=== PATIENT | male | born 1985 | race Caucasian/White ===

== ENCOUNTER 2020-06-29 13:20 | Outpatient (REF) | payer MEDICAID, SELFPAY | END 2020-06-29 13:21 | disposition home or self-care (01) | LOC: HO.LAB 13:20 | PROVIDERS: PCP Nurse Practitioner Family; Visit Provider Internal Medicine | DX: Z20.822 Contact with and (suspected) exposure to COVID-19 (principal) | CPT/HCPCS: 36415; C9803; U0003 ==

== ENCOUNTER 2021-06-12 13:34 | Emergency (ER) | payer MEDICAID, SELFPAY ==
[2021-06-12 13:49] VITALS: BP 166/113; PULSE 97; RESP 18; TEMP 36.7; O2SAT 99; BMI 33.4
== END 2021-06-12 15:55 | disposition left against medical advice (07) ==
LOC: HO.ED 15:52
PROVIDERS: Emergency Provider Emergency Medicine; PCP Internal Medicine
DX: Z02.2 Encounter for examination for admission to residential institution (principal); F14.10 Cocaine abuse, uncomplicated; F10.10 Alcohol abuse, uncomplicated
CPT/HCPCS: 99281

== ENCOUNTER 2022-04-10 09:06 | Observation (INO) | payer MEDICAID, SELFPAY ==
--- NOTE | ~2022-04-10 | FL_ITS ---
EXAMINATION: XR FLUOROSCOPY WITH IMAGES CLINICAL INFORMATION: ERCP. COMPARISON: None. TECHNIQUE: Fluoroscopy performed by Dr. Leonardo Fisher. Fluoroscopy time: 193.1 seconds. Cumulative Dose: 102.79 mGy. Images: 9. FINDINGS: Images show an endoscope with wires entering the common bile duct. Contrast is injected. No convincing filling defects are seen. A balloon is seen in the common bile duct. FL/FL guidance in OR IMPRESSION: Fluoroscopy and spot films were provided during ERCP. Please see Dr. Leonardo Fisher's operative note for full details.
--- NOTE | ~2022-04-10 | CT_ITS ---
EXAMINATION: CT ABDOMEN AND PELVIS WITHOUT CONTRAST CLINICAL INFORMATION: Left flank pain. COMPARISON: None TECHNIQUE: Multidetector volumetric imaging was performed from the superior aspect of the liver through the pubic symphysis. Sagittal and coronal reformatted images were obtained on the technologist's workstation. This CT examination was performed using dose optimization techniques as appropriate, variously including the following: *Automated exposure control *Adjustment of mA and/or kV according to patient size (this includes techniques or standardized protocols for targeted exams where dose is matched to indication/reason for exam; i.e. extremities or head) *Use of iterative reconstruction technique DLP: 638 mGy-cm FINDINGS: LUNG BASES: The lung bases appear clear, with no evidence of inflammation or nodules. LIVER, GALLBLADDER, AND BILIARY TREE: Measures approximately 21 cm in sagittal dimension. No focal hepatic lesion or intrahepatic biliary ductal dilatation is appreciated. Suspect gallbladder sludge and/or stones, suboptimally evaluated by CT. Mildly distended gallbladder, measuring 4.9 cm in diameter. No obvious evidence of gallbladder wall thickening or pericholecystic inflammatory change. Common bile duct measures approximately 1.4 cm in diameter. No stone or mass directly visualized in the distal common bile duct. PANCREAS: Unremarkable SPLEEN: Measures approximately 14 cm in sagittal dimension. ADRENAL GLANDS: Unremarkable KIDNEYS AND URETERS: The kidneys appear unremarkable in size, shape, and attenuation. No hydronephrosis, hydroureter, or calculi seen. BLADDER: Unremarkable GASTROINTESTINAL TRACT: The small and large bowel appear unremarkable. No diverticulosis. Normal-appearing distal ileum. No evidence of appendicitis. ABDOMINAL WALL: No significant hernia is appreciated. LYMPH NODES: No evidence of adenopathy by size criteria. VASCULAR: Unremarkable PELVIC VISCERA: Unremarkable OSSEOUS STRUCTURES: Unremarkable CT/CT abdomen pelvis wo IV con IMPRESSION: No evidence of urinary tract stone or hydronephrosis. Mild hepatosplenomegaly. Suspect gallbladder sludge and/or stones, suboptimally evaluated by CT. Mildly distended gallbladder, measuring 4.9 cm in diameter. No obvious evidence of gallbladder wall thickening or pericholecystic inflammatory change. Common bile duct measures approximately 1.4 cm in diameter. No stone or mass directly visualized in the distal common bile duct.
--- NOTE | ~2022-04-10 | MR_ITS ---
EXAMINATION: MR ABDOMEN WITHOUT CONTRAST CLINICAL INFORMATION: Dilated common bile duct. COMPARISON: CT scan of the abdomen and pelvis and abdominal ultrasound both dated 04/10/2022. TECHNIQUE: MR abdomen is performed without gadolinium contrast. MRCP was performed with 3-D reformatted images performed on a separate workstation. FINDINGS: LUNG BASES: The visualized lung bases are unremarkable. LIVER: Unremarkable. BILIARY: Multiple gallstones are seen. One of the largest measures up to 2.0 cm (image 11, series 3). Minimal gallbladder mural thickening is seen with surrounding T2 hyperintensity. The common bile duct measures up to 1.3 cm. Also several small filling defects are seen inferiorly measuring up to 0.5 cm (image 9, series 6). PANCREAS: No pancreatic ductal dilatation. No other significant abnormality. SPLEEN: Unremarkable. ADRENAL GLANDS: Unremarkable. KIDNEYS AND URETERS: The kidneys are normal in size and shape. No hydronephrosis. No perinephric stranding. GASTROINTESTINAL TRACT: No bowel obstruction. No ascites or fluid collection. ABDOMINAL WALL: No significant hernia is appreciated. LYMPH NODES: No lymphadenopathy. VASCULAR: Unremarkable. OSSEOUS STRUCTURES: Marrow signal normal. MR/MR MRCP IMPRESSION: 1. Cholelithiasis. Developing acute cholecystitis compared to the previous ultrasound cannot be excluded. Continued short-term monitoring with right upper quadrant ultrasound is recommended as indicated. 2. Dilated common bile duct with small filling defects distally suggestive of choledocholithiasis.
--- NOTE | ~2022-04-10 | US_ITS ---
EXAMINATION: US ABDOMEN LIMITED CLINICAL INFORMATION: Abdominal pain. COMPARISON: None TECHNIQUE: Real-time imaging of the right upper quadrant abdominal viscera. FINDINGS: The pancreas is suboptimally seen. There is no free fluid in the area. Liver demonstrates mild intrahepatic ductal dilatation. No lesion is seen. Echogenicity is increased most consistent with an element of fatty change. The gallbladder demonstrates gallstones multiple. There is some focal gallbladder wall thickening demonstrated by the social service worker at 8 mm but no convincing evidence for fluid. Patient is tender, positive Fonseca sign in the region of the gallbladder. The common duct measures 1.2 cm and is dilated. The right kidney is 10.7 cm. No hydronephrosis or stone. US/US abdomen limited IMPRESSION: Cholelithiasis here and the gallbladder wall does appear focally thickened in some areas but no convincing evidence for gall bladder wall edema at this time. There is a positive Fonseca sign. There is intrahepatic ductal dilatation and the common duct is also dilated at 1.2 cm
[2022-04-10 09:16] VITALS: BP 146/95; BP 151/86; PULSE 60; PULSE 66; RESP 22; TEMP 36.6; O2SAT 100; BMI 31.1
--- NOTE | 2022-04-10 09:23 | ED.ABDPAIN ---
HPI - Abdominal Pain General Chief Complaint: Abdominal Pain Stated Complaint: LLQ PAIN X'S 3 HOURS Time Seen by Provider: 04/10/22 09:21 Source: patient Mode of arrival: EMS History of Present Illness HPI narrative: This is a 36 years old with history of substance use disorder, currently on the [facility]. Presented to emergency room complaining of abdominal pain in the left lower quadrant MD elicited complaint: abdominal pain Pertinent past history: other (substance abuse) Onset (ago): hour(s) (4) Pain Consistency: constant Location: LUQ and LLQ Related Data Allergies Allergy/AdvReac Type Severity Reaction Status Date / Time bupropion [From WELLBUTRIN] Allergy Unknown HIVES Unverified 02/21/20 09:37 Review of Systems Constitutional: Reports no additional constitutional complaints Cardiovascular: Reports no additional cardiovascular complaints Respiratory: Reports no additional respiratory complaints Gastrointestinal: Reports abdominal pain PMFSH Past Medical History Medical History Cocaine abuse ETOH abuse Social History Social History Advance Directives: No Advance Directives Information Provided: No Physical Exam ED Vital Signs: Vital Signs - 24 hr 04/10/22 09:16 04/10/22 11:16 Temperature 97.8 F 97.8 F Pulse Rate 66 63 Respiratory Rate 22 H 18 Blood Pressure 146/95 H 148/88 H Pulse Oximetry 100 98 Oxygen Delivery Method Room Air Room Air BMI result Body Mass Index 31.1 Const General: cooperative Nutritional Appearance: average body habitus HENMT Head: Yes normal to inspection Ears: hearing grossly normal bilaterally General nose exam: Normal external nose present Face and sinus: Yes normal facial exam Mouth: Normal oral and palatal mucosa present Neck Neck: Yes normal visual inspection and Yes full ROM Chest Chest palpation & inspection: normal inspection of the chest Resp Effort & Inspection: normal respiratory effort Auscultation: clear to auscultation bilaterally Cardio Rate: regular rate Rhythm: regular rhythm GI Other: tenderness left flank Palpation (GI): Soft to palpation and Tenderness to palpation present (GI) (left lower qyadrant) Percussion: Yes normal to percussion Skin General skin exam: no rashes or lesions noted and elasticity normal Procedures EJ/Peripheral Line Arm L: Time Out Performed: Yes Skin Cleansed in Sterile Fashion: Yes Size (gauge): 18 IV Secured and Dressing Applied: Yes Patient Tolerated Procedure: well Additional Comments: I WAS ASKED BY RN AND TO PLACE AN IV BECAUSE OF POOR IV ACCESS, AND THE ULTRASOUND-GUIDED OUT OF PLANE APPROACH CANNULATED THE LEFT BASILIC VEIN WITH THE 18 GAUGE LONG CATHETER WITH GOOD FLASH A GOOD BLOOD RETURN Course Reevaluation(s) Reevaluation #1: I DISCUSSED THE CASE WITH THE SURGEON ON-CALL dR MAYNARD,SHE WILL SEE PT NOW MDM - Abdominal Pain Lab Data Result diagrams: 04/10/22 11:36 04/10/22 11:36 Labs: Lab Results 04/10/22 04/10/22 Range/Units 11:36 11:36 WBC 11.2 H (4.8-10.8) X10*3/uL RBC 4.95 (4.60-5.80) X10*6/uL Hgb 12.2 L (14.0-18.0) g/dl Hct 39.0 L (42.0-52.0) % MCV 78.8 L (80.0-98.0) fL MCH 24.6 L (27.0-33.0) pg MCHC 31.3 (31.0-36.0) g/dl RDW 13.6 (11.0-16.0) % Plt Count 279 (160-400) X10*3/uL MPV 10.6 (9.4-12.4) fL Immature Gran % (Auto) 0.4 (0.0-0.4) % Neut % (Auto) 88.6 H (45-73) % Lymph % (Auto) 8.4 L (20-40) % [place] % (Auto) 2.1 (2-11) % Eos % (Auto) 0.2 (0-4) % Baso % (Auto) 0.3 (0-2) % Lymph # (Auto) 0.9 L (1.2-4.9) X10*3/uL [place] # (Auto) 0.2 (0.1-1.2) X10*3/uL Eos # (Auto) 0.0 (0.0-0.4) X10*3/uL Baso # (Auto) 0.0 (0.0-0.2) X10*3/uL Abs Immat Gran (auto) 0.04 H (0.00-0.03) X10*3/uL Absolute Neuts (auto) 10.0 H (2.0-8.3) x10*3/uL Absolute Nucleated RBC 0.000 (0.0-0.012) X10*3/uL Nucleated RBC % (auto) 0.0 (0.0-0.2) /100WBC Sodium 142 (135-145) mmol/L Potassium 4.1 (3.3-5.1) mmol/L Chloride 103 (96-108) mmol/L Carbon Dioxide 28 (22-29) mmol/L Anion Gap 15 (12-20) BUN 18 H (9-16) mg/dL Creatinine 0.86 (0.5-1.4) mg/dL Estim Creat Clear Calc 131.4 Estimated GFR > 60 Random Glucose 115 (60-115) mg/dL Calcium 9.9 (8.4-10.2) mg/dL Total Bilirubin 0.5 (0.0-1.0) mg/dL AST 28 (5-37) U/L ALT 20 (0-40) U/L Alkaline Phosphatase 104 (39-117) U/L Total Protein 8.1 H (6.5-8.0) g/dL Albumin 4.7 (3.5-5.0) g/dL Lipase 19 (8-78) U/L Imaging Data CT scan - abdomen: Radiologist's impression: VASCULAR: Unremarkable PELVIC VISCERA: Unremarkable OSSEOUS STRUCTURES: Unremarkable? CT/CT abdomen pelvis wo IV con IMPRESSION: ? No evidence of urinary tract stone or hydronephrosis. ? Mild hepatosplenomegaly. ? Suspect gallbladder sludge and/or stones, suboptimally evaluated by CT. Mildly distended gallbladder, measuring 4.9 cm in diameter. No obvious evidence of gallbladder wall thickening or pericholecystic inflammatory change. Common bile duct measures approximately 1.4 cm in diameter. No stone or mass directly visualized in the distal common bile duct. Dictated By: David Eldridge Signed By: <Electronically signed by Brie Eldridge in [place]> 04/10/22 1121 US ABDO: Radiologist's impression: ?the region of the gallbladder. The common duct measures 1.2 cm and is dilated. The right kidney is 10.7 cm. No hydronephrosis or stone. US/US abdomen limited IMPRESSION: Cholelithiasis here and the gallbladder wall does appear focally thickened in some areas but no convincing evidence for gall bladder wall edema at this time. ? There is a positive Fonseca sign. ? There is intrahepatic ductal dilatation and the common duct is also dilated at 1.2 cm Dictated By: Rickey Rich? Discharge Plan Discharge Clinical Impression: Abdominal pain, Gall bladder stones Patient Disposition: Admitted As Inpatient
[2022-04-10] MEDS: Midazolam HCl/PF 2 MG/2 ML VIAL IM (09:28)
[2022-04-10 11:16] VITALS: BP 148/88; PULSE 63; RESP 18; TEMP 36.6; O2SAT 98
[2022-04-10] MEDS: Ketorolac Tromethamine 30 MG/ML VIAL IVPUSH ×2 (11:39→19:58)
[2022-04-10] MEDS: 0.9 % Sodium Chloride 1,000 ML 999 ML IVCONT (11:40)
[2022-04-10 11:44] LABS: MANUAL DIFF FLAG NO
[2022-04-10 11:45] LABS: Basophils Percent Auto 0.3 % (0-2); Eosinophils Percent Auto 0.2 % (0-4); Hemoglobin 12.2 g/dl (14.0-18.0); Imm Gran Abs Auto 0.04 X10*3/uL (0.00-0.03); Imm Gran Pct Auto 0.4 % (0.0-0.4); Lymphocytes Absolute Auto 0.9 X10*3/uL (1.2-4.9); Lymphocytes Percent Auto 8.4 % (20-40); Mean Corpuscular HGB Conc 31.3 g/dl (31.0-36.0); Mean Corpuscular Hemoglobin 24.6 pg (27.0-33.0); Mean Corpuscular Volume 78.8 fL (80.0-98.0); Mean Platelet Volume 10.6 fL (9.4-12.4); Monocytes Absolute Auto 0.2 X10*3/uL (0.1-1.2); Monocytes Percent Auto 2.1 % (2-11); Neutrophils Percent Auto 88.6 % (45-73); Platelet Count 279 X10*3/uL (160-400); Red Blood Count 4.95 X10*6/uL (4.60-5.80); Red Cell Distribution Width 13.6 % (11.0-16.0); White Blood Count 11.2 X10*3/uL (4.8-10.8)
[2022-04-10 12:04] LABS: Alanine Aminotransferase 20 U/L (0-40); Albumin Level 4.7 g/dL (3.5-5.0); Alkaline Phosphatase 104 U/L (39-117); Anion Gap 15 (12-20); Aspartate Amino Transferase 28 U/L (5-37); Bilirubin Total 0.5 mg/dL (0.0-1.0); Blood Urea Nitrogen 18 mg/dL (9-16); Calcium 9.9 mg/dL (8.4-10.2); Carbon Dioxide 28 mmol/L (22-29); Chloride 103 mmol/L (96-108); Creatinine Clr Calc Pharmacy 131.4; Estimated Glomerular Filt Rate > 60; Glucose Random 115 mg/dL (60-115); Lipase 19 U/L (8-78); Potassium 4.1 mmol/L (3.3-5.1); Sodium 142 mmol/L (135-145); Total Protein 8.1 g/dL (6.5-8.0)
--- NOTE | 2022-04-10 15:58 | PC.NURSE ---
Spoke to [facility] clinical jewelry department supervisor. would like to know what plan for pt is. [phone]
[2022-04-10] MEDS: Piperacillin Sodium/Tazobactam 3.375 GM in 0.9 % Sodium Chloride 50 ML IV ×2 (16:31→23:11)
--- NOTE | 2022-04-10 17:30 | PHA.MEDREC ---
Pharmacy Consult ? Medication Reconciliation Pharmacy has completed the medication reconciliation.
[2022-04-10 18:34] LABS: COVID-19 Test Negative (Negative); IDNOW Serial# 16C4AD1C
--- NOTE | 2022-04-10 18:59 | PC.NURSE ---
pt didn't receive dinner tray in ED, kitchen notified, pt is clear liquid diet, NPO at midnight.
[2022-04-10 19:02] VITALS: BP 127/68; PULSE 72; RESP 18; TEMP 36.6; O2SAT 100
--- NOTE | 2022-04-10 19:40 | P.HPGS_ITS ---
History of Present Illness History of Present Illness Date of Service: 04/10/22 Chief complaint: Abdominal Pain Narrative: Barrington Knight is a 36 year old male living in a pen[facility]iary [facility] for cocaine and etoh abuse presents in ER with a few hr history of severe abdominal pain. no nausea or vomiting no diarrhea no sick contacts. he says he was eating a lot of candy the night before and today - lots of junk food. sometimes gets abdo pain especially when he eats junk food. here wbc mildly up and ct showing distended GB and sludge and dilated duct to 1.4 cm. pt with normal lfts. denies knowing he had issues with gb. no surgeries before. Review of Systems Review of Systems: Yes all other systems are reviewed and are negative PMFSH Past Medical History Medical History Cocaine abuse ETOH abuse Social History Social History Advance Directives: No Advance Directives Information Provided: No Meds Allergies Allergy/AdvReac Type Severity Reaction Status Date / Time bupropion [From WELLBUTRIN] Allergy Unknown HIVES Unverified 02/21/20 09:37 Active Medications: Current Medications Buprenorphine/Naloxone (Buprenorphine/Naloxone 8/2 Mg Film) 1 film SUBLINGUAL DAILY [facility] Last Admin: 04/10/22 19:06 Dose: Not Given Gabapentin (Gabapentin 100 Mg Capsule) 200 mg PO TID [facility] Piperacillin Sod/Tazobactam (Sod 3.375 gm/ Sodium Chloride) 50 mls @ 100 mls/hr IV Q6H [facility] Last Infusion: 04/10/22 17:03 Dose: Infused Ketorolac Tromethamine (Ketorolac Tromethamine 30 Mg/Ml Vial) 30 mg IVPUSH Q6H PRN PRN Reason: Pain, Mild (Pain Scale 1-3) Stop: 04/15/22 15:41 Ondansetron HCl (Ondansetron Hcl 4 Mg/2 Ml Vial) 4 mg IVPUSH Q8H PRN PRN Reason: Nausea and Vomiting Pantoprazole Sodium (Pantoprazole Sodium 40 Mg/10 Ml Vial) 40 mg IVPUSH DAILY@0630 [facility] Sodium Chloride (0.9 % Sodium Chloride Flush 3 Ml Syringe) 3 ml IVFLUSH QSHIFT [facility] Last Admin: 04/10/22 15:47 Dose: Not Given Trazodone HCl (Trazodone Hcl 25 Mg Halftab) 12.5 mg PO Q4H PRN PRN Reason: Anxiety Home Medications Medication Instructions Recorded Confirmed Last Taken Type buprenorphine 8 mg-naloxone 2 mg 1 strip sublingual DAILY 04/10/22 04/10/22 04/10/22 History sublingual film (Suboxone) calcium carbonate 200 mg calcium 2 tab PO QID PRN Acid Reflux 04/10/22 04/10/22 Unknown History (500 mg) chewable tablet (Antacid (calcium carbonate)) gabapentin 100 mg capsule 1 cap PO Q4H PRN anxiety 04/10/22 04/10/22 Unknown History gabapentin 800 mg tablet 1 tab PO TID 04/10/22 04/10/22 04/09/22 History melatonin 3 mg tablet 3 tab PO BEDTIME PRN Insomnia 04/10/22 04/10/22 Unknown History nicotine (polacrilex) 2 mg buccal 1 tete PO Q2H PRN Smoking Cessation 04/10/22 04/10/22 Unknown History lozenge omeprazole 20 mg capsule,delayed 1 cap PO DAILY@0630 04/10/22 04/10/22 04/09/22 History release trazodone 50 mg tablet 0.25 tab PO Q4H PRN anxiety 04/10/22 04/10/22 Unknown History Physical Exam Vital Signs: Vital Signs: Last Vital Signs Temp 97.9 F 04/10/22 19:02 Pulse 72 04/10/22 19:02 Resp 18 04/10/22 19:02 BP 127/68 04/10/22 19:02 Pulse Ox 100 04/10/22 19:02 O2 Del Method 04/10/22 19:02 BMI result Body Mass Index 31.1 Const: General: cooperative, healthy appearing, comfortable and no acute distress Orientation/consciousness: patient oriented x3 Resp: Effort & Inspection: normal respiratory effort Auscultation: clear to auscultation bilaterally Cardio: Rate: regular rate Rhythm: regular rhythm GI: Other: soft tender mid abdomen with some guarding but distractable no peritonitis no masses Auscultation: normal bowel sounds Skin: Other: nonicteric Neuro: General: patient oriented x3 Psych: Appearance: grossly normal Mental Status: mental status grossly normal Affect: Irritable affect present Results Results Labs: Short CBC 04/10/22 Range/Units 11:36 WBC 11.2 H (4.8-10.8) X10*3/uL Hgb 12.2 L (14.0-18.0) g/dl Hct 39.0 L (42.0-52.0) % Plt Count 279 (160-400) X10*3/uL BMP 04/10/22 11:36 Sodium 142 Potassium 4.1 Chloride 103 Carbon Dioxide 28 BUN 18 H Creatinine 0.86 Calcium 9.9 Liver Function 04/10/22 Range/Units 11:36 Total Bilirubin 0.5 (0.0-1.0) mg/dL AST 28 (5-37) U/L ALT 20 (0-40) U/L Alkaline Phosphatase 104 (39-117) U/L Albumin 4.7 (3.5-5.0) g/dL Abdomen CT scan report/results: report reviewed and image reviewed CT scan - pelvis: report reviewed and image reviewed Assessment and Plan (1) Gall bladder stones: Status: Acute Plan 36 year old male presented with severe abdo pain acutely - hx of drug abuse, on suboxone but in a penitentiary house so hasnt used since february. here mild wbc elevated but lfts normal but cbd quite large on images and gb with some stones. ? passed a stone but interestingly all lfts normal plan - admit liquids then npo after midnight mrcp tomorrow check labs he understands and agrees with the plan Quality Stroke Does the patient have a stroke diagnosis?: No VTE Prior VTE?: No VTE Risk Level:: Surgical - low VTE Device Contraindication: N/A - Device Ordered VTE Drug Contraindication: Treatment Not Indicated Procedures Date of Service Date of Service: 04/10/22
--- NOTE | 2022-04-10 20:01 | PC.NURSE ---
pt reports that he took suboxone this am prior to arrival in ED, held 1700 dose at pt request, called pharmacy for ketorolac, medicated per provider order when medication arrived to ED overflow. pt a&ox3, vss, reporting 7/10 abd pain.
[2022-04-11] VITALS (7 sets, daily range): BP systolic 95–138; BP diastolic 54–69; PULSE 60–103; RESP 17–20; TEMP 36.4–37.2; O2SAT 94–97
[2022-04-11] MEDS: Ketorolac Tromethamine 30 MG/ML VIAL IVPUSH ×4 (02:37→22:12)
--- NOTE | 2022-04-11 02:41 | PC.NURSE ---
pt a&ox3, has been sleeping, RR even and unlabored, woken up per pt request for next dose of pain medication, pt reporting 9/10 abd pain. medicated per provider order.
[2022-04-11] MEDS: Piperacillin Sodium/Tazobactam 3.375 GM in 0.9 % Sodium Chloride 50 ML IV ×4 (04:08→22:11)
[2022-04-11 04:11] LABS: MANUAL DIFF FLAG NO
[2022-04-11 04:33] LABS: Basophils Absolute Auto 0.1 X10*3/uL (0.0-0.2); Basophils Percent Auto 0.4 % (0-2); Eosinophils Absolute Auto 0.1 X10*3/uL (0.0-0.4); Eosinophils Percent Auto 0.8 % (0-4); Hematocrit 32.7 % (42.0-52.0); Hemoglobin 10.6 g/dl (14.0-18.0); Imm Gran Abs Auto 0.04 X10*3/uL (0.00-0.03); Imm Gran Pct Auto 0.3 % (0.0-0.4); Lymphocytes Absolute Auto 1.4 X10*3/uL (1.2-4.9); Lymphocytes Percent Auto 11.9 % (20-40); Mean Corpuscular HGB Conc 32.4 g/dl (31.0-36.0); Mean Corpuscular Hemoglobin 25.1 pg (27.0-33.0); Mean Corpuscular Volume 77.5 fL (80.0-98.0); Mean Platelet Volume 11.1 fL (9.4-12.4); Monocytes Absolute Auto 0.8 X10*3/uL (0.1-1.2); Monocytes Percent Auto 6.5 % (2-11); Neutrophils Absolute Auto 9.7 x10*3/uL (2.0-8.3); Neutrophils Percent Auto 80.1 % (45-73); Platelet Count 237 X10*3/uL (160-400); Red Blood Count 4.22 X10*6/uL (4.60-5.80); White Blood Count 12.1 X10*3/uL (4.8-10.8)
[2022-04-11 04:34] LABS: Lipase 13 U/L (8-78)
[2022-04-11] MEDS: Pantoprazole Sodium 40 MG/10 ML VIAL IVPUSH (05:47)
--- NOTE | 2022-04-11 07:43 | PC.NURSE ---
rn to rn report given to shavon, pt aware of plan of care to room 353. pt has an heplock # 20 to l upper arm.
[2022-04-11] MEDS: Buprenorphine/Naloxone 8/2 mg FILM 1 FILM SUBLINGUAL (08:10)
[2022-04-11] MEDS: Gabapentin 100 MG CAPSULE 200 MG PO ×3 (08:10→20:34)
[2022-04-11] MEDS: 0.9 % Sodium Chloride Flush 3 ML SYRINGE IVFLUSH ×3 (08:12→20:35)
--- NOTE | 2022-04-11 08:51 | P.PNGS_ITS ---
Subjective Subjective Date of Service: 04/11/22 <Roseann Dickerson PA-C - Last Filed: 04/11/22 09:00> 04/11/22 <Janusz Gay MD - Last Filed: 04/11/22 09:54> Interval history: Still having a little pain. Hungry and wants to eat. Was recently treated for MRSA bacteremia at [facility] with 6 weeks IV vanco, source was the lower leg per patient. <Roseann Dickerson PA-C - Last Filed: 04/11/22 09:00> Physical Exam Vital Signs: Vital Signs: Last Vital Signs Temp 97.5 F 04/11/22 08:19 Pulse 85 04/11/22 08:19 Resp 18 04/11/22 08:19 BP 138/69 04/11/22 08:19 Pulse Ox 97 04/11/22 08:19 O2 Del Method 04/11/22 08:19 BMI result Body Mass Index 31.1 <Roseann Dickerson PA-C - Last Filed: 04/11/22 09:00> Const: General: comfortable, no acute distress, alert and anxious <Roseann Dickerson PA-C - Last Filed: 04/11/22 09:00> Orientation/consciousness: patient oriented x3 <Roseann Dickerson PA-C - Last Filed: 04/11/22 09:00> Chest: Other: tenderness on ribs on right and left side <Roseann Dickerson PA-C - Last Filed: 04/11/22 09:00> Resp: Effort & Inspection: normal respiratory effort <Roseann Dickerson PA-C - Last Filed: 04/11/22 09:00> Cardio: Rate: regular rate <Roseann Dickerson PA-C - Last Filed: 04/11/22 09:00> GI: Inspection: No distended <MOHIT Oakes Last Filed: 04/11/22 09:00> Palpation (GI): Soft to palpation, Tenderness to palpation present (GI) in the RUQ; Fonseca's sign negative and with no rebound tenderness, no guarding and not rigid <MOHIT Oakes Last Filed: 04/11/22 09:00> Skin: General skin exam: no rashes or lesions noted <Roseann Dickerson PA-C - Last Filed: 04/11/22 09:00> Neuro: General: patient oriented x3 and moves all extremities <Roseann Dickerson PA-C - Last Filed: 04/11/22 09:00> Extrem: General: Yes no clubbing, cyanosis or edema <Roseann Dickerson PA-C - Last Filed: 04/11/22 09:00> Objective Data Active Medications Buprenorphine/Naloxone (Buprenorphine/Naloxone 8/2 Mg Film) 1 film SUBLINGUAL DAILY [facility] Last Admin: 04/11/22 08:10 Dose: 1 film Documented By: BASSAM Gabapentin (Gabapentin 100 Mg Capsule) 200 mg PO TID [facility] Last Admin: 04/11/22 08:10 Dose: 200 mg Documented By: BASSAM Piperacillin Sod/Tazobactam (Sod 3.375 gm/ Sodium Chloride) 50 mls @ 100 mls/hr IV Q6H [facility] Last Infusion: 04/11/22 04:40 Dose: 0 mls/hr Documented By: LIBERTAD Lactated Ringer's (Lr) 1,000 mls @ 80 mls/hr IVCONT .[id number] [facility] Ketorolac Tromethamine (Ketorolac Tromethamine 30 Mg/Ml Vial) 30 mg IVPUSH Q6H PRN PRN Reason: Pain, Mild (Pain Scale 1-3) Stop: 04/15/22 15:41 Last Admin: 04/11/22 02:37 Dose: 30 mg Documented By: MELISSA Ondansetron HCl (Ondansetron Hcl 4 Mg/2 Ml Vial) 4 mg IVPUSH Q8H PRN PRN Reason: Nausea and Vomiting Pantoprazole Sodium (Pantoprazole Sodium 40 Mg/10 Ml Vial) 40 mg IVPUSH DAILY@0630 [facility] Last Admin: 04/11/22 05:47 Dose: 40 mg Documented By: LIBERTAD Sodium Chloride (0.9 % Sodium Chloride Flush 3 Ml Syringe) 3 ml IVFLUSH QSHIFT [facility] Last Admin: 04/11/22 08:12 Dose: 3 ml Documented By: BASSAM Trazodone HCl (Trazodone Hcl 25 Mg Halftab) 12.5 mg PO Q4H PRN PRN Reason: Anxiety <Roseann Dickerson PA-C - Last Filed: 04/11/22 09:00> Labs CBC & Chem 7: : 04/11/22 04:05 04/10/22 11:36 <Roseann Dickerson PA-C - Last Filed: 04/11/22 09:00> Labs: Laboratory Results - last 24 hr 04/10/22 04/10/22 04/10/22 11:36 11:36 18:05 MCV 78.8 L MCH 24.6 L MCHC 31.3 RDW 13.6 Plt Count 279 MPV 10.6 Immature Gran % (Auto) 0.4 Neut % (Auto) 88.6 H Lymph % (Auto) 8.4 L [place] % (Auto) 2.1 Eos % (Auto) 0.2 Baso % (Auto) 0.3 Lymph # (Auto) 0.9 L [place] # (Auto) 0.2 Eos # (Auto) 0.0 Baso # (Auto) 0.0 Abs Immat Gran (auto) 0.04 H Absolute Neuts (auto) 10.0 H Absolute Nucleated RBC 0.000 Nucleated RBC % (auto) 0.0 Anion Gap 15 Estim Creat Clear Calc 131.4 Estimated GFR > 60 Random Glucose 115 Calcium 9.9 Total Bilirubin 0.5 AST 28 ALT 20 Alkaline Phosphatase 104 Total Protein 8.1 H Albumin 4.7 Lipase 19 COVID-19 ([facility]) Negative COVID-19 Clin Com See Note 04/11/22 04/11/22 04:05 04:05 MCV 77.5 L MCH 25.1 L MCHC 32.4 RDW 14.0 Plt Count 237 MPV 11.1 Immature Gran % (Auto) 0.3 Neut % (Auto) 80.1 H Lymph % (Auto) 11.9 L [place] % (Auto) 6.5 Eos % (Auto) 0.8 Baso % (Auto) 0.4 Lymph # (Auto) 1.4 [place] # (Auto) 0.8 Eos # (Auto) 0.1 Baso # (Auto) 0.1 Abs Immat Gran (auto) 0.04 H Absolute Neuts (auto) 9.7 H Absolute Nucleated RBC 0.000 Nucleated RBC % (auto) 0.0 Anion Gap Estim Creat Clear Calc Estimated GFR Random Glucose Calcium Total Bilirubin AST ALT Alkaline Phosphatase Total Protein Albumin Lipase 13 COVID-19 ([facility]) COVID-19 Clin Com <Roseann Dickerson PA-C - Last Filed: 04/11/22 09:00> Procedures Date of Service Date of Service: 04/11/22 <Roseann Dickerson PA-C - Last Filed: 04/11/22 09:00> Progress Note: A&P Assessment and plan (1) Abdominal pain: Status: Acute <Roseann Dickerson PA-C - Last Filed: 04/11/22 09:00> Assessment and Plan: Says he has pain all over Tender as well on the ribs on both sides Abdomen soft benign Await MRI LFTs normal Seen and examined independently- agree with ELIUD Dickerson <Janusz Gay MD - Last Filed: 04/11/22 09:54> Assessment and Plan: 36 year old male admitted with abd pain found to have gallstones, dilated intrahepatic/CBD on imaging. LFTs normal. He reports improvement in the pain today. He is tender in the RUQ but also on the ribs on the right and left. WBC remains mildly elevated. Cont IV zosyn. Awaiting MRCP today. Plan dependent on results. Exam not convincing of acute cholecystitis given tenderness on both sides of ribs with only mild RUQ tenderness, however he does have a leukocytosis. Possible advancement of diet to low fat if MRCP does not demonstrate obstruction or further imaging with HIDA to exclude cholecystitis prior to proceeding with cholecystectomy. Will discuss with patient. <Roseann Dickerson PA-C - Last Filed: 04/11/22 09:00> Time Spent With Patient Time: Total time spent is greater than 50% in coordination of care (as documented) at patient's floor/unit and/or counseling patient: <Roseann Dickerson PA-C - Last Filed: 04/11/22 09:00> Quality Stroke Does the patient have a stroke diagnosis?: No <Roseann Dickerson PA-C - Last Filed: 04/11/22 09:00> VTE Prior VTE?: No <Roseann Dickerson PA-C - Last Filed: 04/11/22 09:00> VTE Risk Level:: Surgical - low <Roseann Dickerson PA-C - Last Filed: 04/11/22 09:00> VTE Device Contraindication: N/A - Device Ordered <Roseann Dickerson PA-C - Last Filed: 04/11/22 09:00> VTE Drug Contraindication: Treatment Not Indicated <Roseann Dickerson PA-C - Last Filed: 04/11/22 09:00>
--- NOTE | 2022-04-11 10:01 | MHC.CM.PN ---
CM ATTEMPTED TO MEET W/PT HOWEVER PT NOT IN ROOM, CM TO REVISIT.
[2022-04-11] MEDS: Lactated Ringers 1,000 ML 80 ML IVCONT ×2 (10:07→22:50)
[2022-04-11 11:46] LABS: Alanine Aminotransferase 165 U/L (0-40); Albumin Level 3.8 g/dL (3.5-5.0); Alkaline Phosphatase 230 U/L (39-117); Anion Gap 18 (12-20); Aspartate Amino Transferase 149 U/L (5-37); Bilirubin Total 1.8 mg/dL (0.0-1.0); Blood Urea Nitrogen 22 mg/dL (9-16); Calcium 8.7 mg/dL (8.4-10.2); Carbon Dioxide 21 mmol/L (22-29); Chloride 105 mmol/L (96-108); Creatinine Clr Calc Pharmacy 128.4; Estimated Glomerular Filt Rate > 60; Glucose Random 105 mg/dL (60-115); Potassium 3.9 mmol/L (3.3-5.1); Sodium 140 mmol/L (135-145); Total Protein 6.7 g/dL (6.5-8.0)
--- NOTE | 2022-04-11 15:09 | MHC.CM.PN ---
RAQUEL 04/11/22, EMR REVIEWED, CM MET W/PT WHO IS A&0X4, PT REPORTS HE LIVES AT [facility] IN [place] SINCE HE DISCHARGED FROM [facility] AND THEN [facility] AFTER 6 WKS OF IV ABX, PT DENIES USE OF DME, NO HOME SERVICES OTHER THAN [facility], PT VERIFIES PCP MICHELLE GAN, MODERNA X2 AND PFIZER BOOSTER X1, PT EDUCATED ON AND CURRENTLY DECLINES TO COMPLETE A HCP AT THIS TIME. ANTIC RETURN TO [facility] WHEN MEDICALLY CLEARED, [facility] WILL TRANSPORT PT.
--- NOTE | 2022-04-11 16:01 | MHC.SHP ---
Pre-Procedural Eval Section A Date of Service: 04/11/22 The patient is an INPATIENT: Yes Changes since office visit: No Cold of Flu in the past 2 weeks, No New Medical Problems, No Changes in Medication and No Patient answered all questions The History & Physical has been completed within 30 days and I have reviewed it.: Yes Section B Chief Complaint: Abdominal Pain Allergies: Allergies Allergy/AdvReac Type Severity Reaction Status Date / Time bupropion [From WELLBUTRIN] Allergy Unknown HIVES Verified 04/11/22 01:15 Plan I have reviewed the history and physical and performed a pertinent physical examination on my patient. No changes have occurred unless specified.
--- NOTE | 2022-04-11 16:01 | PM.EVENT ---
Event Note Date of Service: 04/11/22 Event Note: GI pt seen/examined, consult dictated. ERCP scheduled for 04/12 for further evaluation of cbd stones. He is aware of risks and benefits and agrees to proceed.
[2022-04-11] MEDS: ondansetron HCL 4 MG/2 ML VIAL IVPUSH (20:44)
[2022-04-11] MEDS: traZODone HCL 25 MG HALFTAB 12.5 MG PO (22:11)
[2022-04-12] VITALS (11 sets, daily range): BP systolic 103–139; BP diastolic 53–86; PULSE 52–89; RESP 16–18; TEMP 36.2–36.6; O2SAT 94–100
[2022-04-12] MEDS: Piperacillin Sodium/Tazobactam 3.375 GM in 0.9 % Sodium Chloride 50 ML IV ×4 (04:28→22:43)
--- NOTE | 2022-04-12 05:02 | CONS_ITS ---
DATE OF SERVICE: 04/11/2022 REFERRING PHYSICIAN: Roseann Dickerson PA-C REASON FOR CONSULTATION: Common bile duct stones. HISTORY OF PRESENT ILLNESS: The patient is a pleasant 36-year-old man, who was admitted to the hospital on April 10 after presenting to the emergency room because of abdominal pain. He states he was well until the morning of admission when he developed the acute onset of abdominal pain, which he describes as generalized. There was no associated nausea or vomiting. He felt well the night before. The pain developed and he had eaten a candy. He subsequently developed abdominal pain in the morning of admission, which came on around 6 a.m. without any precipitating factors. He was evaluated in the emergency department and imaging studies were obtained including CT scanning and ultrasound, which showed intrahepatic and common duct dilation. Subsequently, he underwent MRI today, which showed filling defects within the common bile duct consistent with choledocholithiasis. Liver function tests on admission were normal and have subsequently become elevated. Currently, he feels well and denies fevers, chills, nausea, vomiting, or abdominal pain. PAST MEDICAL HISTORY: 1. Substance abuse with opiates and cocaine. 2. Recent MRSA infection involving the left lower extremity. ALLERGIES: BUPROPION. FAMILY HISTORY: This is reviewed with the patient and is noncontributory. SOCIAL HISTORY: He denies current substance abuse. CURRENT MEDICATIONS: His current medication list is reviewed in the chart. REVIEW OF SYSTEMS: SKIN: No pruritus. HEENT: Negative. CARDIOPULMONARY: No shortness of breath or chest pain. GASTROINTESTINAL: As above. GENITOURINARY: Negative. NEUROPSYCHIATRIC: Negative. PHYSICAL EXAMINATION: GENERAL: Reveals a pleasant male, lying in bed. VITAL SIGNS: Reviewed in the electronic medical record and are stable. He has been afebrile. SKIN: Anicteric. HEENT: Shows no scleral icterus. NECK: Without lymphadenopathy or thyromegaly. LUNGS: Clear. HEART: Shows regular rate and rhythm. S1, S2. No murmur. ABDOMEN: Soft without focal masses or tenderness. Bowel sounds are present. No organomegaly is noted. EXTREMITIES: Without edema. LABORATORY DATA: Reviewed as are imaging studies. IMPRESSION: Common bile duct stones. I have discussed endoscopy. I have discussed ERCP including risks and benefits with the patient. He understands these and agrees to proceed. This will be arranged for tomorrow. Thanks for asking me to see him. I will follow him in the hospital with you. MD NOLA Khan/PREET / [phone]
[2022-04-12] MEDS: Pantoprazole Sodium 40 MG/10 ML VIAL IVPUSH (05:05)
[2022-04-12] MEDS: Buprenorphine/Naloxone 8/2 mg FILM 1 FILM SUBLINGUAL (08:44)
[2022-04-12] MEDS: Gabapentin 100 MG CAPSULE 200 MG PO ×3 (08:44→22:12)
[2022-04-12] MEDS: Ketorolac Tromethamine 30 MG/ML VIAL IVPUSH (08:44)
[2022-04-12] MEDS: 0.9 % Sodium Chloride Flush 3 ML SYRINGE IVFLUSH ×2 (08:44→18:29)
--- NOTE | 2022-04-12 09:37 | PM.PNGS ---
Subjective Subjective Date of Service: 04/12/22 <Roseann Dickerson PA-C - Last Filed: 04/12/22 09:41> 04/12/22 <Janusz Gay MD - Last Filed: 04/12/22 12:45> Interval history: Awaiting ERCP today. Does not think he wants to have gallbladder removed during this stay. Keeps staying he wants to go home and doesnt want to be here a week. States he has pain in the RUQ but better. <Roseann Dickerson PA-C - Last Filed: 04/12/22 09:41> Physical Exam Vital Signs: Vital Signs: Last Vital Signs Temp 97.6 F 04/12/22 07:33 Pulse 89 04/12/22 07:33 Resp 18 04/12/22 07:33 BP 103/53 L 04/12/22 07:33 Pulse Ox 97 04/12/22 07:33 O2 Del Method 04/12/22 07:33 BMI result Body Mass Index 31.1 <Roseann Dickerson PA-C - Last Filed: 04/12/22 09:41> Const: General: comfortable, no acute distress and alert <Roseann Dickerson PA-C - Last Filed: 04/12/22 09:41> Orientation/consciousness: patient oriented x3 <Roseann Dickerson PA-C - Last Filed: 04/12/22 09:41> Resp: Effort & Inspection: normal respiratory effort <Roseann Dickerson PA-C - Last Filed: 04/12/22 09:41> GI: Inspection: No distended <Roseann Dickerson PA-C - Last Filed: 04/12/22 09:41> Palpation (GI): Soft to palpation, Tenderness to palpation present (GI) in the RUQ (mild); Fonseca's sign negative, no guarding and not rigid <MOHIT Oakes Last Filed: 04/12/22 09:41> Skin: General skin exam: no rashes or lesions noted <MOHIT Oakes Last Filed: 04/12/22 09:41> Neuro: General: patient oriented x3 <MOHIT aOkes Last Filed: 04/12/22 09:41> Extrem: General: Yes no clubbing, cyanosis or edema <Roseann Dickerson PA-C - Last Filed: 04/12/22 09:41> Objective Data Active Medications Buprenorphine/Naloxone (Buprenorphine/Naloxone 8/2 Mg Film) 1 film SUBLINGUAL DAILY [facility] Last Admin: 04/12/22 08:44 Dose: 1 film Documented By: DELANEY Gabapentin (Gabapentin 100 Mg Capsule) 200 mg PO TID [facility] Last Admin: 04/12/22 08:44 Dose: 200 mg Documented By: DELANEY Piperacillin Sod/Tazobactam (Sod 3.375 gm/ Sodium Chloride) 50 mls @ 100 mls/hr IV Q6H [facility] Last Infusion: 04/12/22 05:00 Dose: 0 mls/hr Documented By: HERNAN Lactated Ringer's (Lr) 1,000 mls @ 80 mls/hr IVCONT .[id number] [facility] Last Admin: 04/11/22 22:50 Dose: 80 mls/hr Documented By: HERNAN Ketorolac Tromethamine (Ketorolac Tromethamine 30 Mg/Ml Vial) 30 mg IVPUSH Q6H PRN PRN Reason: Pain, Mild (Pain Scale 1-3) Stop: 04/15/22 15:41 Last Admin: 04/12/22 08:44 Dose: 30 mg Documented By: DELANEY Ondansetron HCl (Ondansetron Hcl 4 Mg/2 Ml Vial) 4 mg IVPUSH Q8H PRN PRN Reason: Nausea and Vomiting Last Admin: 04/11/22 20:44 Dose: 4 mg Documented By: HERNAN Pantoprazole Sodium (Pantoprazole Sodium 40 Mg/10 Ml Vial) 40 mg IVPUSH DAILY@0630 [facility] Last Admin: 04/12/22 05:05 Dose: 40 mg Documented By: HERNAN Sodium Chloride (0.9 % Sodium Chloride Flush 3 Ml Syringe) 3 ml IVFLUSH QSHIFT [facility] Last Admin: 04/12/22 08:44 Dose: 3 ml Documented By: DELANEY Trazodone HCl (Trazodone Hcl 25 Mg Halftab) 12.5 mg PO Q4H PRN PRN Reason: Anxiety Last Admin: 04/11/22 22:11 Dose: 12.5 mg Documented By: SKIP <Roseann Dickerson PA-C - Last Filed: 04/12/22 09:41> Labs CBC & Chem 7: : 04/11/22 04:05 04/11/22 10:45 <Roseann Dickerson PA-C - Last Filed: 04/12/22 09:41> Labs: Laboratory Results - last 24 hr 04/11/22 10:45 Anion Gap 18 Estim Creat Clear Calc 128.4 Estimated GFR > 60 Random Glucose 105 Calcium 8.7 D Total Bilirubin 1.8 H AST 149 H ALT 165 H Alkaline Phosphatase 230 H D Total Protein 6.7 Albumin 3.8 <Roseann Dickerson PA-C - Last Filed: 04/12/22 09:41> Procedures Date of Service Date of Service: 04/12/22 <Roseann Dickerson PA-C - Last Filed: 04/12/22 09:41> Progress Note: A&P Assessment and plan (1) Choledocholithiasis: Status: Acute <Roseann Dickerson PA-C - Last Filed: 04/12/22 09:41> Assessment and Plan: MRCP yesterday showed filling defects in CBD comfortable denies complaints abd soft, non tender await ERCP he understands option of inpt cholecystectomy after CBD cleared seen and examined independently - agree withELIUD Dickerson <Janusz Gay MD - Last Filed: 04/12/22 12:45> Assessment and Plan: 36 year old male admitted with abdominal pain found to have CBD stone on MRCP. Plan is for ERCP today. Discussed cholecystectomy following this during this stay he however does not want to discuss this this morning. Will come back following the procedure. Cont NPO status, IVF, IV zosyn. Advance diet following the procedure and discuss timeline for cholecystectomy which can be done during this stay or on an outpatient basis if he tolerates a solid diet. Chance of recurrence of CBD stone in the interval period was discussed. <Roseann Dickerson PA-C - Last Filed: 04/12/22 09:41> Time Spent With Patient Time: Total time spent is greater than 50% in coordination of care (as documented) at patient's floor/unit and/or counseling patient: <Roseann Dickerson PA-C - Last Filed: 04/12/22 09:41> Quality Stroke Does the patient have a stroke diagnosis?: No <Roseann Dickerson PA-C - Last Filed: 04/12/22 09:41> VTE Prior VTE?: No <Roseann Dickerson PA-C - Last Filed: 04/12/22 09:41> VTE Risk Level:: Surgical - low <Roseann Dickerson PA-C - Last Filed: 04/12/22 09:41> VTE Device Contraindication: N/A - Device Ordered <Roseann Dickerson PA-C - Last Filed: 04/12/22 09:41> VTE Drug Contraindication: Treatment Not Indicated <Roseann Dickerson PA-C - Last Filed: 04/12/22 09:41>
--- NOTE | 2022-04-12 10:50 | P.CONAN_ITS ---
Documented by User: Ct Ramos MD 04/12/22 13:11 HPI - Anesthesia Eval Consult details Narrative: 36 yo male patient for ERCP PMFSH Active Problems Active Problems: All Active Problems (Updated 04/12/22 @ 09:38 by Roseann Dickerson PA-C) Choledocholithiasis (Acute) Abdominal pain (Acute) Gall bladder stones (Acute) Anemia Increased BUN ?Dehydration Anxiety Substance use disorder- opiates, cocaine. On suboxone Dozier's palsy right Past Medical History Medical History Cellulitis of left arm Cocaine abuse ETOH abuse Family History Family history of problems with anesthesia: No Surgical History History of Problems with Anesthesia: No Social History Social History Patient Tobacco Use Status: Former Tobacco user Tobacco use type: Cigarette service: No Meds Allergies Allergy/AdvReac Type Severity Reaction Status Date / Time bupropion [From WELLBUTRIN] Allergy Mild HIVES Verified 04/12/22 12:12 Home Medications Medication Instructions Recorded Confirmed Last Taken Type buprenorphine 8 mg-naloxone 2 mg 1 strip sublingual DAILY 04/10/22 04/10/22 04/10/22 History sublingual film (Suboxone) calcium carbonate 200 mg calcium 2 tab PO QID PRN Acid Reflux 04/10/22 04/10/22 Unknown History (500 mg) chewable tablet (Antacid (calcium carbonate)) gabapentin 100 mg capsule 1 cap PO Q4H PRN anxiety 04/10/22 04/10/22 Unknown History gabapentin 800 mg tablet 1 tab PO TID 04/10/22 04/10/22 04/09/22 History melatonin 3 mg tablet 3 tab PO BEDTIME PRN Insomnia 04/10/22 04/10/22 Unknown History nicotine (polacrilex) 2 mg buccal 1 tete PO Q2H PRN Smoking Cessation 04/10/22 04/10/22 Unknown History lozenge omeprazole 20 mg capsule,delayed 1 cap PO DAILY@0630 04/10/22 04/10/22 04/09/22 History release trazodone 50 mg tablet 0.25 tab PO Q4H PRN anxiety 04/10/22 04/10/22 Unknown History Exam Height,Weight and Vital Signs: Height 5 ft 8 in Weight 92.986 kg Last Vital Signs Temp 97.6 F 04/12/22 07:33 Pulse 89 04/12/22 07:33 Resp 18 04/12/22 07:33 BP 103/53 L 04/12/22 07:33 Pulse Ox 97 04/12/22 07:33 O2 Del Method 04/12/22 07:33 Vital Signs Temp Pulse Resp BP Pulse Ox O2 Del Method 04/12/22 12:20 97.2 F 69 16 123/70 97 Room Air 04/12/22 11:15 97.2 F 64 18 114/69 96 Room Air 04/12/22 07:33 97.6 F 89 18 103/53 L 97 Room Air 04/12/22 04:00 98 F 82 17 111/65 95 Room Air 04/11/22 19:21 98.9 F 76 17 120/63 94 Room Air 04/11/22 15:33 97.5 F 83 17 108/58 L 96 Room Air Pertinent Lab Results Pertinent Lab Results: Laboratory Tests 04/10/22 04/10/22 04/10/22 11:36 11:36 18:05 WBC 11.2 H RBC 4.95 Hgb 12.2 L Hct 39.0 L MCV 78.8 L MCH 24.6 L MCHC 31.3 RDW 13.6 Plt Count 279 MPV 10.6 Immature Gran % (Auto) 0.4 Neut % (Auto) 88.6 H Lymph % (Auto) 8.4 L [place] % (Auto) 2.1 Eos % (Auto) 0.2 Baso % (Auto) 0.3 Lymph # (Auto) 0.9 L [place] # (Auto) 0.2 Eos # (Auto) 0.0 Baso # (Auto) 0.0 Abs Immat Gran (auto) 0.04 H Absolute Neuts (auto) 10.0 H Absolute Nucleated RBC 0.000 Nucleated RBC % (auto) 0.0 Sodium 142 Potassium 4.1 Chloride 103 Carbon Dioxide 28 Anion Gap 15 BUN 18 H Creatinine 0.86 Estim Creat Clear Calc 131.4 Estimated GFR > 60 Random Glucose 115 Calcium 9.9 Total Bilirubin 0.5 AST 28 ALT 20 Alkaline Phosphatase 104 Total Protein 8.1 H Albumin 4.7 Lipase 19 COVID-19 ([facility]) Negative COVID-19 Clin Com See Note 04/11/22 04/11/22 04/11/22 04:05 04:05 10:45 WBC 12.1 H RBC 4.22 L Hgb 10.6 L Hct 32.7 L MCV 77.5 L MCH 25.1 L MCHC 32.4 RDW 14.0 Plt Count 237 MPV 11.1 Immature Gran % (Auto) 0.3 Neut % (Auto) 80.1 H Lymph % (Auto) 11.9 L [place] % (Auto) 6.5 Eos % (Auto) 0.8 Baso % (Auto) 0.4 Lymph # (Auto) 1.4 [place] # (Auto) 0.8 Eos # (Auto) 0.1 Baso # (Auto) 0.1 Abs Immat Gran (auto) 0.04 H Absolute Neuts (auto) 9.7 H Absolute Nucleated RBC 0.000 Nucleated RBC % (auto) 0.0 Sodium 140 Potassium 3.9 Chloride 105 Carbon Dioxide 21 L Anion Gap 18 BUN 22 H Creatinine 0.88 Estim Creat Clear Calc 128.4 Estimated GFR > 60 Random Glucose 105 Calcium 8.7 D Total Bilirubin 1.8 H AST 149 H ALT 165 H Alkaline Phosphatase 230 H D Total Protein 6.7 Albumin 3.8 Lipase 13 COVID-19 ([facility]) COVID-19 Clin Com Laboratory Results - last 24 hr 04/12/22 10:47 Urine Opiates Screen Not Detected Urine Fentanyl Screen Not Detected Ur Barbiturates Screen Not Detected Ur Phencyclidine Scrn Not Detected Ur Amphetamines Screen Not Detected U Benzodiazepines Scrn Not Detected Urine Cocaine Screen Not Detected U Marijuana (THC) Screen Not Detected Airway Mallampati Class: IV (Very small mouth opening. Dozier's palsy) TM Dist: >3cm Neck ROM: Full Loose/Missing/Broken Teeth: No (Denies broken or loose teeth but filling missing from tooth back) Heart: RRR Lungs: CTAB Assessment and Plan Final Anesthetic Review Family History of Problems with Anesthesia: No History of Problems with Anesthesia: No NPO: Yes ASA Class: III and Emergency Final Preanesthetic Review: No Changes in Pt Med Stat, Meds/Allgs Chart Reviewed, Consent Obtained/Reviewed and Anes Risks/Benef Reviewed Patient Risk: Intermediate Procedure Risk: Low Assessment/Block/Sedation in SS: Assess/Block/Sedation-SS Anesthetic Plan Anesthetic Plan: GA Disposition: Standard PACU and Inp. Admit - Standard Bed Documented by User: Shaista Durbin MD [facility] Active Problems Active Problems: All Active Problems (Updated 04/12/22 @ 09:38 by Roseann Dickerson PA-C) Choledocholithiasis (Acute) Abdominal pain (Acute) Gall bladder stones (Acute) Past Medical History Medical History Cellulitis of left arm Cocaine abuse ETOH abuse Social History Social History Patient Tobacco Use Status: Former Tobacco user Tobacco use type: Cigarette service: No Meds Allergies Allergy/AdvReac Type Severity Reaction Status Date / Time bupropion [From WELLBUTRIN] Allergy Mild HIVES Verified 04/12/22 12:12 Active Medications: Current Medications Buprenorphine/Naloxone (Buprenorphine/Naloxone 8/2 Mg Film) 1 film SUBLINGUAL DAILY [facility] Last Admin: 04/12/22 08:44 Dose: 1 film Gabapentin (Gabapentin 100 Mg Capsule) 200 mg PO TID [facility] Last Admin: 04/12/22 08:44 Dose: 200 mg Piperacillin Sod/Tazobactam (Sod 3.375 gm/ Sodium Chloride) 50 mls @ 100 mls/hr IV Q6H [facility] Last Admin: 04/12/22 10:24 Dose: 100 mls/hr Lactated Ringer's (Lr) 1,000 mls @ 80 mls/hr IVCONT .[id number] [facility] Last Admin: 04/11/22 22:50 Dose: 80 mls/hr Ketorolac Tromethamine (Ketorolac Tromethamine 30 Mg/Ml Vial) 30 mg IVPUSH Q6H PRN PRN Reason: Pain, Mild (Pain Scale 1-3) Stop: 04/15/22 15:41 Last Admin: 04/12/22 08:44 Dose: 30 mg Ondansetron HCl (Ondansetron Hcl 4 Mg/2 Ml Vial) 4 mg IVPUSH Q8H PRN PRN Reason: Nausea and Vomiting Last Admin: 04/11/22 20:44 Dose: 4 mg Pantoprazole Sodium (Pantoprazole Sodium 40 Mg/10 Ml Vial) 40 mg IVPUSH DAILY@0630 [facility] Last Admin: 04/12/22 05:05 Dose: 40 mg Sodium Chloride (0.9 % Sodium Chloride Flush 3 Ml Syringe) 3 ml IVFLUSH QSHIFT [facility] Last Admin: 04/12/22 08:44 Dose: 3 ml Trazodone HCl (Trazodone Hcl 25 Mg Halftab) 12.5 mg PO Q4H PRN PRN Reason: Anxiety Last Admin: 04/11/22 22:11 Dose: 12.5 mg Home Medications Medication Instructions Recorded Confirmed Last Taken Type buprenorphine 8 mg-naloxone 2 mg 1 strip sublingual DAILY 04/10/22 04/10/22 04/10/22 History sublingual film (Suboxone) calcium carbonate 200 mg calcium 2 tab PO QID PRN Acid Reflux 04/10/22 04/10/22 Unknown History (500 mg) chewable tablet (Antacid (calcium carbonate)) gabapentin 100 mg capsule 1 cap PO Q4H PRN anxiety 04/10/22 04/10/22 Unknown History gabapentin 800 mg tablet 1 tab PO TID 04/10/22 04/10/22 04/09/22 History melatonin 3 mg tablet 3 tab PO BEDTIME PRN Insomnia 04/10/22 04/10/22 Unknown History nicotine (polacrilex) 2 mg buccal 1 tete PO Q2H PRN Smoking Cessation 04/10/22 04/10/22 Unknown History lozenge omeprazole 20 mg capsule,delayed 1 cap PO DAILY@0630 04/10/22 04/10/22 04/09/22 History release trazodone 50 mg tablet 0.25 tab PO Q4H PRN anxiety 04/10/22 04/10/22 Unknown History Exam Exam Date and Time: April 12, 2022 1050 Height,Weight and Vital Signs: Height 5 ft 8 in Weight 92.986 kg Last Vital Signs Temp 97.6 F 04/12/22 07:33 Pulse 89 04/12/22 07:33 Resp 18 04/12/22 07:33 BP 103/53 L 04/12/22 07:33 Pulse Ox 97 04/12/22 07:33 O2 Del Method 04/12/22 07:33 Pertinent Lab Results Pertinent Lab Results: Laboratory Tests 04/10/22 04/10/22 04/10/22 11:36 11:36 18:05 WBC 11.2 H RBC 4.95 Hgb 12.2 L Hct 39.0 L MCV 78.8 L MCH 24.6 L MCHC 31.3 RDW 13.6 Plt Count 279 MPV 10.6 Immature Gran % (Auto) 0.4 Neut % (Auto) 88.6 H Lymph % (Auto) 8.4 L [place] % (Auto) 2.1 Eos % (Auto) 0.2 Baso % (Auto) 0.3 Lymph # (Auto) 0.9 L [place] # (Auto) 0.2 Eos # (Auto) 0.0 Baso # (Auto) 0.0 Abs Immat Gran (auto) 0.04 H Absolute Neuts (auto) 10.0 H Absolute Nucleated RBC 0.000 Nucleated RBC % (auto) 0.0 Sodium 142 Potassium 4.1 Chloride 103 Carbon Dioxide 28 Anion Gap 15 BUN 18 H Creatinine 0.86 Estim Creat Clear Calc 131.4 Estimated GFR > 60 Random Glucose 115 Calcium 9.9 Total Bilirubin 0.5 AST 28 ALT 20 Alkaline Phosphatase 104 Total Protein 8.1 H Albumin 4.7 Lipase 19 COVID-19 ([facility]) Negative COVID-19 Clin Com See Note 04/11/22 04/11/22 04/11/22 04:05 04:05 10:45 WBC 12.1 H RBC 4.22 L Hgb 10.6 L Hct 32.7 L MCV 77.5 L MCH 25.1 L MCHC 32.4 RDW 14.0 Plt Count 237 MPV 11.1 Immature Gran % (Auto) 0.3 Neut % (Auto) 80.1 H Lymph % (Auto) 11.9 L [place] % (Auto) 6.5 Eos % (Auto) 0.8 Baso % (Auto) 0.4 Lymph # (Auto) 1.4 [place] # (Auto) 0.8 Eos # (Auto) 0.1 Baso # (Auto) 0.1 Abs Immat Gran (auto) 0.04 H Absolute Neuts (auto) 9.7 H Absolute Nucleated RBC 0.000 Nucleated RBC % (auto) 0.0 Sodium 140 Potassium 3.9 Chloride 105 Carbon Dioxide 21 L Anion Gap 18 BUN 22 H Creatinine 0.88 Estim Creat Clear Calc 128.4 Estimated GFR > 60 Random Glucose 105 Calcium 8.7 D Total Bilirubin 1.8 H AST 149 H ALT 165 H Alkaline Phosphatase 230 H D Total Protein 6.7 Albumin 3.8 Lipase 13 COVID-19 ([facility]) COVID-19 Clin Com
[2022-04-12] MEDS: Lactated Ringers 1,000 ML 80 ML IVCONT ×2 (11:12→22:20)
[2022-04-12 11:34] LABS: Amphetamine Screen Urine Not Detected (Not Detect); Barbiturates, Urine Not Detected (Not Detect); Benzodiazepines Screen Urine Not Detected (Not Detect); Cannabinoid Screen Urine Not Detected (Not Detect); Cocaine Screen Urine Not Detected (Not Detect); Fentanyl, urine Not Detected (Not Detect); Opiate Screen Urine Not Detected (Not Detect); Phencyclidine Screen Urine Not Detected (Not Detect)
[2022-04-12] MEDS: Lactated Ringers 1,000 ML 100 ML IVCONT ×2 (12:32→22:44)
--- NOTE | 2022-04-12 14:37 | P.BOP_ITS ---
Brief Operative Note Date of Service: 04/12/22 Pre-op diagnosis: cbd stones Procedure: ERCP Surgeon: Leonardo Fisher Anesthesia: GETA Was an Director Investor Relations used for this Procedure?: No Estimated blood loss (mL): 0 Pathology: none sent Condition: stable Disposition: PACU
--- NOTE | 2022-04-12 14:38 | PM.EVENT ---
Event Note Date of Service: 04/12/22 Event Note: ERCP sludge and stone fragments removed with balloon following sphincterotomy. good drainage of clear yellow bile at termination of procedure. partial cystic duct filling seen. rec: advance diet ccy per gen surg.
[2022-04-13] VITALS: BP 127/83; PULSE 71; RESP 18; TEMP 36.3; O2SAT 98
[2022-04-13] MEDS: traZODone HCL 25 MG HALFTAB 12.5 MG PO (01:20)
[2022-04-13] MEDS: 0.9 % Sodium Chloride Flush 3 ML SYRINGE IVFLUSH ×2 (01:21→08:58)
[2022-04-13 04:00] VITALS: BP 119/63; PULSE 59; RESP 18; TEMP 36.6; O2SAT 94
--- NOTE | 2022-04-13 04:14 | OP_ITS ---
SURGEON: Leonardo Fisher MD INDICATIONS: Common bile duct stones seen on MR imaging. PREOPERATIVE DIAGNOSIS: POSTOPERATIVE DIAGNOSIS: PROCEDURE PERFORMED: ERCP with sphincterotomy and common bile duct stone extraction. Date is 04/12/22. ESTIMATED BLOOD LOSS: COMPLICATIONS: ANESTHESIA: General anesthesia. ASSISTANTS: SPECIMENS: DESCRIPTION OF PROCEDURE: History and physical were performed. The risks and benefits of the procedure were explained to the patient. Informed consent was obtained. The patient was placed in the prone position with a wedge under the right shoulder. The Olympus therapeutic duodenoscope was introduced into the esophagus, stomach, and duodenum. Examination was performed. The scope was removed. He tolerated the procedure well and was taken to recovery area in stable condition. FINDINGS: Endoscopy: Limited examination of the esophagus, stomach, and duodenum were within normal limits. The major papilla appeared normal and was noted to drain clear yellow bile. There were 2 small duodenal diverticula. The common bile duct was instrumented with a guidewire and sphincterotome. Injection of dye confirmed at least 1 filling defect consistent with the findings on MRI. This was fairly small, about 4 mm. Next, a sphincterotomy was performed to about 8 to 10 mm with no immediate complications. A balloon extraction catheter was used to sweep the duct multiple times with removal of soft stone material and sludge. Occlusion cholangiography of the termination of the procedure showed no further filling defects. There was excellent drainage of clear yellow bile also. Partial filling of the cystic duct was observed. This appeared to have a fairly low takeoff from the common duct. No pancreatogram was attempted or obtained. IMPRESSION: Common bile duct stones. RECOMMENDATION: 1. Advance diet. 2. Cholecystectomy can be arranged per General Surgery. MD NOLA Khan/PREET / [id number] MTDD
[2022-04-13] MEDS: Piperacillin Sodium/Tazobactam 3.375 GM in 0.9 % Sodium Chloride 50 ML IV ×2 (05:22→08:57)
[2022-04-13] MEDS: Pantoprazole Sodium 40 MG/10 ML VIAL IVPUSH (05:23)
[2022-04-13 07:00] VITALS: BP 102/53; PULSE 59; RESP 18; TEMP 36.9; O2SAT 97
[2022-04-13 07:23] VITALS: BP 102/53; PULSE 59; RESP 18; TEMP 36.9; O2SAT 97
--- NOTE | 2022-04-13 08:26 | MHC.CM.PN ---
Addendum entered by Moni Chambers RN 04/13/22 08:27: PT TO ARRANGE TRANSPORT W/[facility]ERLY [facility] Original Note: PT MEDICALLY CLEARED FOR D/C HOME SELF-CARE, PT
--- NOTE | 2022-04-13 08:47 | PM.PNGS ---
Subjective Subjective Date of Service: 04/13/22 <Roseann Dickerson PA-C - Last Filed: 04/13/22 08:50> 04/13/22 <Janusz Gay MD - Last Filed: 04/13/22 10:16> Interval history: Feels much better. Denies abd pain but c/o throat pain. Tolerating solid diet. Wants to go home. <Roseann Dickerson PA-C - Last Filed: 04/13/22 08:50> Physical Exam Vital Signs: Vital Signs: Last Vital Signs Temp 98.4 F 04/13/22 07:23 Pulse 59 04/13/22 07:23 Resp 18 04/13/22 07:23 BP 102/53 L 04/13/22 07:23 Pulse Ox 97 04/13/22 07:23 O2 Del Method 04/13/22 07:23 BMI result Body Mass Index 31.1 <Roseann Dickerson PA-C - Last Filed: 04/13/22 08:50> Const: General: comfortable, no acute distress and alert <Roseann Dickerson PA-C - Last Filed: 04/13/22 08:50> Orientation/consciousness: patient oriented x3 <MOHIT Oakes Last Filed: 04/13/22 08:50> Resp: Effort & Inspection: normal respiratory effort <Roseann Dickerson PA-C - Last Filed: 04/13/22 08:50> GI: Inspection: No distended <Rosenan Dickerson PA-C - Last Filed: 04/13/22 08:50> Palpation (GI): Soft to palpation, Tenderness to palpation present (GI) (very mild RUQ), no guarding and not rigid <Roseann Dickerson PA-C - Last Filed: 04/13/22 08:50> Skin: General skin exam: no rashes or lesions noted <MOHIT Oakes Last Filed: 04/13/22 08:50> Neuro: General: patient oriented x3 and moves all extremities <MOHIT Oakes Last Filed: 04/13/22 08:50> Objective Data Active Medications Buprenorphine/Naloxone (Buprenorphine/Naloxone 8/2 Mg Film) 1 film SUBLINGUAL DAILY [facility] Last Admin: 04/12/22 08:44 Dose: 1 film Documented By: DELANEY Gabapentin (Gabapentin 100 Mg Capsule) 200 mg PO TID [facility] Last Admin: 04/12/22 22:12 Dose: 200 mg Documented By: LLOYD Piperacillin Sod/Tazobactam (Sod 3.375 gm/ Sodium Chloride) 50 mls @ 100 mls/hr IV Q6H [facility] Last Infusion: 04/13/22 06:47 Dose: 100 mls/hr Documented By: BARBI Lactated Ringer's (Lr) 1,000 mls @ 80 mls/hr IVCONT .[id number] [facility] Last Admin: 04/12/22 22:20 Dose: 80 mls/hr Documented By: LLOYD Lactated Ringer's (Lr) 1,000 mls @ 100 mls/hr IVCONT .Q10H [facility] Last Admin: 04/12/22 22:44 Dose: 100 mls/hr Documented By: LLOYD Ketorolac Tromethamine (Ketorolac Tromethamine 30 Mg/Ml Vial) 30 mg IVPUSH Q6H PRN PRN Reason: Pain, Mild (Pain Scale 1-3) Stop: 04/15/22 15:41 Last Admin: 04/12/22 08:44 Dose: 30 mg Documented By: DELANEY Ondansetron HCl (Ondansetron Hcl 4 Mg/2 Ml Vial) 4 mg IVPUSH Q8H PRN PRN Reason: Nausea and Vomiting Last Admin: 04/11/22 20:44 Dose: 4 mg Documented By: HERNAN Ondansetron HCl (Ondansetron Hcl 4 Mg/2 Ml Vial) 4 mg IVPUSH ONCE PRN PRN Reason: Nausea and Vomiting Pantoprazole Sodium (Pantoprazole Sodium 40 Mg/10 Ml Vial) 40 mg IVPUSH DAILY@0630 [facility] Last Admin: 04/13/22 05:23 Dose: 40 mg Documented By: BARBI Sodium Chloride (0.9 % Sodium Chloride Flush 3 Ml Syringe) 3 ml IVFLUSH QSHIFT [facility] Last Admin: 04/13/22 01:21 Dose: 3 ml Documented By: BARBI Trazodone HCl (Trazodone Hcl 25 Mg Halftab) 12.5 mg PO Q4H PRN PRN Reason: Anxiety Last Admin: 04/13/22 01:20 Dose: 12.5 mg Documented By: BARBI <Roseann Dickerson PA-C - Last Filed: 04/13/22 08:50> Labs CBC & Chem 7: : 04/11/22 04:05 04/11/22 10:45 <Roseann Dickerson PA-C - Last Filed: 04/13/22 08:50> Labs: Laboratory Results - last 24 hr 04/12/22 10:47 Urine Opiates Screen Not Detected Urine Fentanyl Screen Not Detected Ur Barbiturates Screen Not Detected Ur Phencyclidine Scrn Not Detected Ur Amphetamines Screen Not Detected U Benzodiazepines Scrn Not Detected Urine Cocaine Screen Not Detected U Marijuana (THC) Screen Not Detected <Roseann Dickerson PA-C - Last Filed: 04/13/22 08:50> Procedures Date of Service Date of Service: 04/13/22 <Roseann Dickerson PA-C - Last Filed: 04/13/22 08:50> Progress Note: A&P Assessment and plan (1) Choledocholithiasis: Status: Acute <Roseann Dickerson PA-C - Last Filed: 04/13/22 08:50> Assessment and Plan: Status post ERCP with stone retrieval He is doing well Denies symptoms He wants to go home - he says he will do cholecystectomy as an outpatient Abdomen soft Seen and examined independently - agree with ELIUD Dickerson <Janusz Gay MD - Last Filed: 04/13/22 10:16> (2) Gall bladder stones: Status: Acute <Roseann Dickerson PA-C - Last Filed: 04/13/22 08:50> Assessment and Plan: 36 year old male admitted with abdominal pain found to have CBD stone on MRCP. Underwent ERCP yesterday with stone removal. He feels well this morning, tolerating solid diet. VSS. Abd exam benign. He wants to go home today and will follow up with Dr. Gay to schedule outpatient cholecystectomy. Chance of recurrence of CBD stone in the interval period was discussed and he understands this. He is stable for d/c to home today. <Roseann Dickerson PA-C - Last Filed: 04/13/22 08:50> Time Spent With Patient Time: Total time spent is greater than 50% in coordination of care (as documented) at patient's floor/unit and/or counseling patient: <Roseann Dickerson PA-C - Last Filed: 04/13/22 08:50> Quality Stroke Does the patient have a stroke diagnosis?: No <Roseann Dickerson PA-C - Last Filed: 04/13/22 08:50> VTE Prior VTE?: No <Roseann Dickerson PA-C - Last Filed: 04/13/22 08:50> VTE Risk Level:: Surgical - low <Roseann Dickerson PA-C - Last Filed: 04/13/22 08:50> VTE Device Contraindication: N/A - Device Ordered <Roseann Dickerson PA-C - Last Filed: 04/13/22 08:50> VTE Drug Contraindication: Treatment Not Indicated <Roseann Dickerson PA-C - Last Filed: 04/13/22 08:50>
[2022-04-13] MEDS: Gabapentin 100 MG CAPSULE 200 MG PO (08:57)
[2022-04-13] MEDS: Buprenorphine/Naloxone 8/2 mg FILM 1 FILM SUBLINGUAL (08:58)
--- NOTE | 2022-04-13 09:59 | PM.DS ---
DS: Providers Provider Date of Service: 04/13/22 Date of admission: 04/10/22 15:42 Date of discharge: 04/13/22 Primary care physician: Unknown Physician Admitting clinician: Marilyn Galvan Consults: 04/11/22 10:48 Consult to Gastroenterology Routine Consulting Provider: Rabia Todd Reason for consultation: choledocolithiasis Attending physician on discharge: Janusz Gay DS: Diagnosis Discharge Diagnosis (1) Choledocholithiasis: Status: Acute (2) Gall bladder stones: Status: Acute DS: Summary Hospital Course Hospital Course: BRIEF HPI: Barrington Knight is a 36 year old male living in a half-way house for cocaine and etoh abuse presents in ER with a few hr history of severe abdominal pain. No nausea or vomiting, no diarrhea, no sick contacts. He says he was eating a lot of candy the night before and today - lots of junk food. Sometimes gets abd pain especially when he eats junk food. Work up showed wbc mildly up and CT/US showing distended GB and sludge and dilated duct to 1.4 cm. LFTs normal. No prior surgeries. Recently admitted to [facility] for 6 weeks for MRSA bacteremia treated with IV vanco. HOSPITAL COURSE: The patient was admitted to the surgical service under Dr. Galvan for further work up and treatment. His CBD was quite large on imaging however LFTs were normal. Plan was for MRCP to evaluate the CBD. He was kept NPO, started on IVF, IV zosyn for possible early acute cholecystitis given the slight wall thickening on imaging and mildly elevated WBC count. The MRCP showed a dilated CBD and small distal filling defects. His LFTs trended up with a total bili of 1.8. GI consult was obtained for ERCP. ERCP was performed on 04/12/[address] Fisher without complication. Sludge and stone fragments were removed with balloon following sphincterotomy. The patient tolerated this well. He was tolerating a solid diet afterwards. He was doing well the following day with near resolution of his abdominal pain. His abdomen was benign and nontender. There were multiple lengthy discussions about proceeding with laparoscopic cholecystectomy following the ERCP during this stay to prevent recurrence of the choledocolithiasis. He wanted this to be performed on an outpatient basis. He did understand the chance of recurrence in the interval period. He felt ready for discharge to home. He was discharged to home on 04/13/22 in stable condition. He is to call the general surgery office to schedule an outpatient lap cholecystectomy. Status at Discharge Functional status at discharge: independent ambulation Overall status at discharge: patient is back to baseline Time Spent with Patient Time attestation: Total time spent providing and/or coordinating discharge services: Discharge coordination time: Greater than 30 minutes Quality: Safe Use of Opioids Does Pt have an Active Cancer Diagnosis on the Problem List?: No Quality: Stroke Does the patient have a stroke diagnosis?: No Physical Exam Vital Signs: Vital Signs: Last Vital Signs Temp 98.4 F 04/13/22 07:23 Pulse 59 04/13/22 07:23 Resp 18 04/13/22 07:23 BP 102/53 L 04/13/22 07:23 Pulse Ox 97 04/13/22 07:23 O2 Del Method 04/13/22 07:23 BMI result Body Mass Index 31.1 Const: General: comfortable, no acute distress, well developed and alert Orientation/consciousness: patient oriented x3 Resp: Effort & Inspection: normal respiratory effort GI: Inspection: No distended Palpation (GI): Soft to palpation, nontender, no guarding and not rigid Skin: General skin exam: no rashes or lesions noted Neuro: General: patient oriented x3 and moves all extremities DS: Data Data Completed and Pending Labs on day of discharge: Laboratory Results - last 24 hr 04/12/22 10:47 Urine Opiates Screen Not Detected Urine Fentanyl Screen Not Detected Ur Barbiturates Screen Not Detected Ur Phencyclidine Scrn Not Detected Ur Amphetamines Screen Not Detected U Benzodiazepines Scrn Not Detected Urine Cocaine Screen Not Detected U Marijuana (THC) Screen Not Detected Discharge Plan Discharge Patient Disposition: Home, Self-Care Discharge Diagnosis: choledocolithiasis Referrals: Janusz Gay MD [Physician] - 1 Week Physician,Unknown J [Primary Care Provider] - 1 Week Discharge Medications: Continued trazodone 50 mg tablet 0.25 tab PO Q4H PRN (Reason: anxiety) melatonin 3 mg tablet 3 tab PO BEDTIME PRN (Reason: Insomnia) gabapentin 800 mg tablet 1 tab PO TID calcium carbonate [Antacid (calcium carbonate)] 200 mg calcium (500 mg) tablet,chewable 2 tab PO QID PRN (Reason: Acid Reflux) omeprazole 20 mg capsule,delayed release(DR/EC) 1 cap PO DAILY@0630 gabapentin 100 mg capsule 1 cap PO Q4H PRN (Reason: anxiety) nicotine (polacrilex) 2 mg lozenge 1 tete PO Q2H PRN (Reason: Smoking Cessation) buprenorphine-naloxone [Suboxone] 8-2 mg film 1 strip sublingual DAILY Discharge Orders: Discharge Order (Routine); Ordered 04/13/22 Ordered By: Roseann Dickerson Diet: Low fat, low cholesterol Activity on Discharge: As tolerated Stand Alone Forms: Patient Portal Discharge page Activity Restrictions/Additional Instructions: Call Your Doctor If: ? ? -Your temperature exceeds 101.5? F? ? ? -You experience excessive pain or swelling ? ? -You have an unexpected reaction to medication ? ? -You experience continued vomiting/nausea Care Plan Goals: Resolution of abdominal pain and return to activity. Health Concerns: Gallstones, choledocolithiasis Plan of Treatment: S/p ERCP Low fat diet F/u in office with Dr. Gay for eventual lap cholecystectomy Assessment: Improved
[2022-04-13 10:21] VITALS: BP 128/80; PULSE 80; RESP 17; TEMP 36.7; O2SAT 98
[2022-04-13 10:40] LABS: Hematocrit 31.8 % (42.0-52.0); Hemoglobin 10.1 g/dl (14.0-18.0); Mean Corpuscular HGB Conc 31.8 g/dl (31.0-36.0); Mean Corpuscular Hemoglobin 24.8 pg (27.0-33.0); Mean Corpuscular Volume 77.9 fL (80.0-98.0); PLT CLUMP 1; Red Blood Count 4.08 X10*6/uL (4.60-5.80)
[2022-04-13 11:05] LABS: Alanine Aminotransferase 64 U/L (0-40); Albumin Level 3.5 g/dL (3.5-5.0); Alkaline Phosphatase 172 U/L (39-117); Aspartate Amino Transferase 16 U/L (5-37); Bilirubin Direct 0.2 mg/dL (0.0-0.5); Bilirubin Total 0.3 mg/dL (0.0-1.0); Total Protein 6.5 g/dL (6.5-8.0)
[2022-04-13 11:23] LABS: Platelet Count 186 X10*3/uL (160-400); White Blood Count 6.3 X10*3/uL (4.8-10.8)
--- NOTE | 2022-04-13 12:06 | HO.POSTANES ---
Post Anesthesia Evaluation Post Anesthesia Evaluation Vital Signs: Vital Signs Temp Pulse Resp BP Pulse Ox O2 Del Method 04/13/22 10:21 98.1 F 80 17 128/80 98 Room Air 04/13/22 07:23 98.4 F 59 18 102/53 L 97 Room Air 04/13/22 07:00 98.4 F 59 18 102/53 L 97 Room Air 04/13/22 04:00 97.8 F 59 18 119/63 94 Room Air Anesthesia: General Mental Status: Awake Pain Control: Satisfactory Nausea/Vomiting: None Hydration: Adequate Anesthesia-Related Issues: No Anes. Related Issues
== END 2022-04-13 12:00 | disposition home or self-care (01) ==
LOC: HO.ED 16:23 → HO.EDOVER 16:34 → HO.S3 04-11 07:15
PROVIDERS: Anesthesiology; Internal Medicine Gastroenterology; Admitting Provider Surgery; Emergency Provider Emergency Medicine; PCP Internal Medicine; Visit Provider Surgery
PROC: (CPT 43260; principal; 2022-04-12 12:00)
DX: K80.70 Calculus of gallbladder and bile duct without cholecystitis without obstruction (principal); R10.32 Left lower quadrant pain; F11.20 Opioid dependence, uncomplicated; F14.10 Cocaine abuse, uncomplicated; F10.10 Alcohol abuse, uncomplicated; Y90.9 Presence of alcohol in blood, level not specified; Z79.899 Other long term (current) drug therapy
CPT/HCPCS: 43262; 43264; 36415; 36573; 74176; 74181; 76705; 80053; 80076; 80307; 83690; 85025; 85027; 87635; 96361; 96372; 96374; 99218; 99285; J0131; J1610; J1885; J2250; J2405; J2543; J3010; Q9967

== ENCOUNTER 2022-05-15 02:50 | Emergency (ER) | payer MEDICAID, SELFPAY ==
--- NOTE | ~2022-05-15 | XR_ITS ---
EXAMINATION: XR CHEST CLINICAL INFORMATION: Chest pain COMPARISON: Chest radiograph 02/29/2020 TECHNIQUE: Frontal view of the chest was obtained. FINDINGS: Normal appearance of the cardiomediastinal structures. No effusions or pneumothoraces. No focal pulmonary consolidation. Low lung volumes with the fifth anterior rib segments terminating projection with the lung bases. XR/XR chest 1V IMPRESSION: Low lung volumes; otherwise, normal chest. Lungs clear.
[2022-05-15 02:52] VITALS: BP 115/75; PULSE 72; O2SAT 99
[2022-05-15 02:59] VITALS: BP 115/75; BP 131/78; PULSE 72; PULSE 84; RESP 14; TEMP 37.2; O2SAT 97; O2SAT 99; BMI 29.7
[2022-05-15 03:01] VITALS: BP 131/78; PULSE 78; RESP 14; TEMP 37.2; O2SAT 97
--- NOTE | 2022-05-15 03:13 | PC.NURSE ---
Pt presented to ER via EMS for pain when he breathes in. Pt was picked up at the [employer] as he didn't have a phone and needed help. Pt reports that the pain on inspiration began approximately 4 hours ago, after he did some cocaine. Pt admits he uses IV cocaine and smokes cigarettes daily. I noted some slight wheezes in the left lung base but pt shows no signs of respiratory distress at this time. During my assessment, pt was complaining of pain and discomfort in his left leg. There was blood on the outside of his jeans. Upon inspection, I noticed an area about 5x3 inches that was red, scabbed, and possibly infected. Pt also complained of pain when he sat up, stating he felt pain down his entire back.
--- NOTE | 2022-05-15 03:56 | ECG_ITS ---
Test Reason : DYSPNEA Blood Pressure : / mmHG Vent. Rate : 076 BPM Atrial Rate : 076 BPM P-R Int : 174 ms QRS Dur : 106 ms QT Int : 460 ms P-R-T Axes : 011 -39 031 degrees QTc Int : 517 ms Normal sinus rhythm Left axis deviation Possible Inferior infarct (cited on or before 29-FEB-2020) Prolonged QT Abnormal ECG When compared with ECG of 29-FEB-2020 17:48, QT has lengthened Referred By: Cristy Sanders Electronically Signed By:RICH PEREZ MD
--- NOTE | 2022-05-15 03:59 | ED.GENADULT ---
HPI - General Adult General Chief complaint: Dyspnea Stated complaint: sob Time Seen by Provider: 05/15/22 03:50 Source: patient Mode of arrival: ambulatory Limitations: other (Somnolent) History of Present Illness HPI narrative: Patient comes to the emergency room via EMS. Patient was [place] [facility]. Patient complaining of chest pain, states it has been going on for several days, patient admits using IV cocaine prior to arrival. Also complaining pain in the medial aspect of the distal left lower extremity. Patient states that he shoots up drugs there. At this time, patient states that he has no chest pain, no shortness of breath. Related Data Home Medications Medication Instructions Recorded Confirmed buprenorphine 8 mg-naloxone 2 mg 1 strip sublingual DAILY 04/10/22 04/10/22 sublingual film (Suboxone) calcium carbonate 200 mg calcium 2 tab PO QID PRN Acid Reflux 04/10/22 04/10/22 (500 mg) chewable tablet (Antacid (calcium carbonate)) gabapentin 100 mg capsule 1 cap PO Q4H PRN anxiety 04/10/22 04/10/22 gabapentin 800 mg tablet 1 tab PO TID 04/10/22 04/10/22 melatonin 3 mg tablet 3 tab PO BEDTIME PRN Insomnia 04/10/22 04/10/22 nicotine (polacrilex) 2 mg buccal 1 tete PO Q2H PRN Smoking Cessation 04/10/22 04/10/22 lozenge omeprazole 20 mg capsule,delayed 1 cap PO DAILY@0630 04/10/22 04/10/22 release trazodone 50 mg tablet 0.25 tab PO Q4H PRN anxiety 04/10/22 04/10/22 Previous Rx's Medication Instructions Recorded cephalexin 500 mg capsule 500 mg PO BID #14 caps 05/15/22 doxycycline hyclate 100 mg capsule 100 mg PO BID #14 caps 05/15/22 Allergies Allergy/AdvReac Type Severity Reaction Status Date / Time bupropion [From WELLBUTRIN] Allergy Mild HIVES Verified 04/12/22 12:12 Review of Systems Review of Systems: Constitutional : No Weight loss, No Fever, No Chills, No Night Sweats, No Fatigue, No Malaise ENT/Mouth : No Hearing loss, No Ear Pain, No Nasal Congestion, No Sinus Pain, No Hoarseness, No sore throat, No Rhinorrhea, No Swallowing Difficulty Eyes: No Eye Pain, No Swelling, No Redness, No Foreign Body, No Discharge, No Vision Changes Cardiovascular : Complaining of chest pain for several days, No SOB, No Dyspnea on Exertion, No Orthopnea, No Edema, No Palpitations Respiratory : No Cough, No Sputum, No Wheezing, No Smoke Exposure, No Dyspnea, burning sensation with deep inhalation Gastrointestinal : No Nausea, No Vomiting, No Diarrhea, No Constipation, No abdominal Pain, No Hematochezia, No Melena Genitourinary : no irregular bleeding, No Dysuria, No Urinary Frequency, No Hematuria, No Urinary Incontinence, No Urgency, No Flank Pain, No Urinary Flow Changes, No Hesitancy Musculoskeletal : No joint pain, No Myalgias, No Joint Swelling Skin : Complaining of a skin lesion in the left lower extremity where he should stop cocaine Neuro : No Weakness, No Numbness, No Paresthesias, No Loss of Consciousness, No Dizziness, No Headache Psych : No Anxiety/Panic, No Depression, No SI/HI/AH/VH, No Social Issues, Heme/Lymph: No Bruising, No Bleeding,No Lymphadenopathy Endocrine : No Polyuria, No Polydipsia, No Temperature Intolerance PMFSH Past Medical History Medical History Cellulitis of left arm Cocaine abuse ETOH abuse Social History Social History Alcohol intake: never Patient Tobacco Use Status: Former Tobacco user Tobacco use type: Cigarette Smoked in Last 30 Days: Yes Use of substances other than those prescribed or required for medical reasons: Yes Substance Use Type: Crack/Cocaine Substance Use Frequency: Chronic Longstanding Advance Directives: No service: No Physical Exam ED Vital Signs: Vital Signs - 24 hr 05/15/22 02:59 05/15/22 03:01 05/15/22 05:22 Temperature 98.9 F 98.9 F 98.2 F Pulse Rate 84 78 77 Respiratory Rate 14 14 16 Blood Pressure 131/78 131/78 133/76 Pulse Oximetry 97 97 95 Oxygen Delivery Method Room Air Room Air Room Air BMI result Body Mass Index 29.7 Const Other: Appearance: Alert. Oriented X3. No acute distress. Somnolent, easily arousable Eyes: Pupils equal, round and reactive to light. ENT: Pharynx normal. Neck: Normal inspection. Neck supple. No lymph nodes noted. No crepitus CVS: Normal heart rate and rhythm. Pulses normal. Normal S1 and S2 Respiratory: No respiratory distress. Breath sounds normal. No Wheezing. No rales Abdomen: Soft and nontender. No rigidity. No distention. Skin: Skin warm and dry. Patient has extensive scar in in the medial aspect of the left lower extremity, cellulitis present. Extremities: No lower extremity edema. No Lacerations. No Rash Neuro: Oriented X 3. No motor deficit. No sensory deficit. Moving all extremities. No slurred speech. CN 2 through 12 grossly intact Psych: calm, cooperative, normal affect Course Course Course Narrative: Patient is under the influence of drugs. All of patient's labs and imaging are pending. Patient's white blood cell count within normal limits, troponin negative, lactic acid normal. Patient was given 1 dose of p.o. Keflex and doxycycline. More medication was sent to the patient's pharmacy to complete a course of antibiotics. Patient's Wells criteria score for pulmonary embolism is 0. Patient is afebrile, normal heart rate, normal blood pressure, 97% on room air. Patient is still somnolent, easily arousable. When patient wakes up, may be discharged home. Medical Decision Making Medical Decision Making Differential Diagnoses: Differential diagnosis (ACS, cocaine induced ischemia/NSTEMI, PE, cellulitis) Lab Attestation: I reviewed the patient's lab results. (Patient's labs at baseline) Independent interpretation of EKG, rhythm strip, radiology study: Independent interp EKG,rhythm strip, radiology study I performed an independent interpretation of the: EKG My interpretation is sinus rhythm, heart rate 76, no ST segment depression or elevation, no T-wave inversion, QTC prolonged, likely secondary to drug use. Discharge Plan Discharge Clinical Impression: Cellulitis, Substance abuse Patient Disposition: Home, Self-Care Instructions: Cellulitis (ED), Polysubstance Abuse (ED) Additional Instructions: Please follow-up with your primary care physician tomorrow. If you have any worsening or new symptoms, please return to the emergency room or call 911 Prescriptions: New cephalexin 500 mg capsule 500 mg PO BID Qty: 14 0RF doxycycline hyclate 100 mg capsule 100 mg PO BID Qty: 14 0RF No Action trazodone 50 mg tablet 0.25 tab PO Q4H PRN (Reason: anxiety) melatonin 3 mg tablet 3 tab PO BEDTIME PRN (Reason: Insomnia) gabapentin 800 mg tablet 1 tab PO TID calcium carbonate [Antacid (calcium carbonate)] 200 mg calcium (500 mg) tablet,chewable 2 tab PO QID PRN (Reason: Acid Reflux) omeprazole 20 mg capsule,delayed release(DR/EC) 1 cap PO DAILY@0630 gabapentin 100 mg capsule 1 cap PO Q4H PRN (Reason: anxiety) nicotine (polacrilex) 2 mg lozenge 1 tete PO Q2H PRN (Reason: Smoking Cessation) buprenorphine-naloxone [Suboxone] 8-2 mg film 1 strip sublingual DAILY
[2022-05-15 04:43] LABS: COVID-19 Test Negative (Negative); IDNOW Serial# BCCEAD1C
[2022-05-15 04:56] LABS: Basophils Percent Auto 0.3 % (0-2); Eosinophils Absolute Auto 0.1 X10*3/uL (0.0-0.4); Eosinophils Percent Auto 1.3 % (0-4); Hematocrit 38.3 % (42.0-52.0); Hemoglobin 12.1 g/dl (14.0-18.0); Imm Gran Abs Auto 0.02 X10*3/uL (0.00-0.03); Imm Gran Pct Auto 0.2 % (0.0-0.4); Lymphocytes Absolute Auto 1.4 X10*3/uL (1.2-4.9); Lymphocytes Percent Auto 15.7 % (20-40); MANUAL DIFF FLAG NO; Mean Corpuscular HGB Conc 31.6 g/dl (31.0-36.0); Mean Corpuscular Hemoglobin 24.1 pg (27.0-33.0); Mean Corpuscular Volume 76.3 fL (80.0-98.0); Monocytes Absolute Auto 0.4 X10*3/uL (0.1-1.2); Monocytes Percent Auto 4.2 % (2-11); Neutrophils Absolute Auto 7.2 x10*3/uL (2.0-8.3); Neutrophils Percent Auto 78.3 % (45-73); Platelet Count 305 X10*3/uL (160-400); Red Blood Count 5.02 X10*6/uL (4.60-5.80); Red Cell Distribution Width 14.9 % (11.0-16.0); White Blood Count 9.2 X10*3/uL (4.8-10.8)
[2022-05-15 05:09] LABS: Lactic Acid 0.7 mmol/L (0.5-2.0)
[2022-05-15 05:13] LABS: Ethanol < 10 mg/dL
[2022-05-15 05:14] LABS: Alanine Aminotransferase 55 U/L (0-40); Albumin Level 4.2 g/dL (3.5-5.0); Alkaline Phosphatase 120 U/L (39-117); Anion Gap 14 (12-20); Aspartate Amino Transferase 65 U/L (5-37); Bilirubin Direct 0.3 mg/dL (0.0-0.5); Bilirubin Total 0.6 mg/dL (0.0-1.0); Blood Urea Nitrogen 16 mg/dL (9-16); Calcium 9.1 mg/dL (8.4-10.2); Carbon Dioxide 26 mmol/L (22-29); Chloride 99 mmol/L (96-108); Creatinine Clr Calc Pharmacy 128.6; Estimated Glomerular Filt Rate > 60; Glucose Random 120 mg/dL (60-115); Potassium 3.3 mmol/L (3.3-5.1); Sodium 136 mmol/L (135-145)
[2022-05-15 05:17] LABS: Troponin-I High Sensitivity < 3.5 ng/L (<3.5-35.0)
[2022-05-15 05:22] VITALS: BP 133/76; PULSE 77; RESP 16; TEMP 36.8; O2SAT 95
[2022-05-15] MEDS: cephALEXin 500 MG CAPSULE PO (07:02)
[2022-05-15] MEDS: Doxycycline Monohydrate 100 MG CAPSULE PO (07:03)
== END 2022-05-15 07:07 | disposition home or self-care (01) ==
PROVIDERS: Emergency Provider Emergency Medicine
DX: L03.116 Cellulitis of left lower limb (principal); R06.02 Shortness of breath; R07.89 Other chest pain; F14.10 Cocaine abuse, uncomplicated; Z20.822 Contact with and (suspected) exposure to COVID-19; Z79.899 Other long term (current) drug therapy
CPT/HCPCS: 36415; 71045; 80048; 80076; 82077; 83605; 84484; 85025; 87040; 87635; 93005; 99283; 99285

== ENCOUNTER 2022-06-14 11:48 | Emergency (ER) | payer MEDICAID, SELFPAY ==
--- NOTE | ~2022-06-14 | US_ITS ---
EXAMINATION: US ABDOMEN LIMITED CLINICAL INFORMATION: Right upper quadrant pain, elevated LFTs. COMPARISON: 04/10/2022 abdominal ultrasound TECHNIQUE: Real-time imaging of the right upper quadrant abdominal viscera. FINDINGS: PANCREAS: Visualized portions unremarkable. LIVER: Unremarkable. GALLBLADDER: Multiple echogenic gallstones are seen. Mild mural thickening is again seen without edema or pericholecystic fluid. COMMON BILE DUCT: Normal in caliber measuring 1.0 cm in diameter. RIGHT KIDNEY: 11.4 cm. Unremarkable. FREE FLUID: None. US/US abdomen limited IMPRESSION: Cholelithiasis without evidence for acute cholecystitis. No significant interval change. Common bile duct dilatation has decreased.
[2022-06-14 12:00] VITALS: BP 123/72; PULSE 93; RESP 20; TEMP 36.4; O2SAT 95; BMI 30.4
--- NOTE | 2022-06-14 12:00 | ED_ITS ---
HPI - General Adult General Chief complaint: General Medical <ELIUD Obando - Last Filed: 06/14/22 12:03> Stated complaint: Swollen extremities/Needs suboxone <ELIUD Obando - Last Filed: 06/14/22 12:03> Time Seen by Provider: 06/14/22 12:20 <ELIUD Obando - Last Filed: 06/14/22 12:03> Source: patient <Kerasuyapa Riggs JAMES Nascimento - Last Filed: 06/14/22 18:59> Mode of arrival: ambulatory <Kera Nascimento CNP - Last Filed: 06/14/22 18:59> Limitations: no limitations <Kera Nascimento CNP - Last Filed: 06/14/22 18:59> History of Present Illness HPI narrative: Patient is a 36-year-old male who presents to the emergency department for evaluation of swelling to the bilateral hands with redness and associated pain. Additionally is reporting swelling to the bilateral feet, however they are not red. He does state that he has been outside over the past week. Denies fevers, chills, chest pain, shortness of breath, difficulty breathing, nausea, vomiting, abdominal pain. Reports a history of MRSA infection requiring treatment with IV antibiotics and February [address] [facility]. Reports last Monday, 7 days ago he was discharged from an inpatient psych unit; [place], on 06/09/2022 with picked up his prescription for Suboxone, he took this for 2 days, and then he reports that he fell asleep in a [employer] bathroom in someone stool the rest of his Suboxone. He has not had Suboxone for the past 4 days. He endorses snorting heroin and/or for sentinel yesterday, denies using anything today. He is interested in detox. <Kera Nascimento CNP - Last Filed: 06/14/22 18:59> Related Data Home medications: Home Medications Medication Instructions Recorded Confirmed buprenorphine 8 mg-naloxone 2 mg 1 strip sublingual DAILY 04/10/22 04/10/22 sublingual film (Suboxone) calcium carbonate 200 mg calcium 2 tab PO QID PRN Acid Reflux 04/10/22 04/10/22 (500 mg) chewable tablet (Antacid (calcium carbonate)) gabapentin 100 mg capsule 1 cap PO Q4H PRN anxiety 04/10/22 04/10/22 gabapentin 800 mg tablet 1 tab PO TID 04/10/22 04/10/22 melatonin 3 mg tablet 3 tab PO BEDTIME PRN Insomnia 04/10/22 04/10/22 nicotine (polacrilex) 2 mg buccal 1 tete PO Q2H PRN Smoking Cessation 04/10/22 04/10/22 lozenge omeprazole 20 mg capsule,delayed 1 cap PO DAILY@0630 04/10/22 04/10/22 release trazodone 50 mg tablet 0.25 tab PO Q4H PRN anxiety 04/10/22 04/10/22 Previous Rx's Medication Instructions Recorded cephalexin 500 mg capsule 500 mg PO BID #14 caps 05/15/22 doxycycline hyclate 100 mg capsule 100 mg PO BID #14 caps 05/15/22 cephalexin 500 mg capsule 500 mg PO QID 7 days #28 caps 06/14/22 doxycycline hyclate 100 mg capsule 100 mg PO BID #14 caps 06/14/22 <ELIUD Obando - Last Filed: 06/14/22 12:03> Allergies/adverse reactions: Allergies Allergy/AdvReac Type Severity Reaction Status Date / Time bupropion [From WELLBUTRIN] Allergy Mild HIVES Verified 04/12/22 12:12 <ELIUD Obando - Last Filed: 06/14/22 12:03> Review of Systems Review of Systems: Constitutional: No weight loss, fever, chills, weakness or fatigue. Skin: No rash or itching. Cardiovascular: No chest pain, chest pressure or chest discomfort. No palpitations. Positive pedal edema. Positive swelling to the bilateral hands Respiratory: No shortness of breath, cough or sputum production. Gastrointestinal: No anorexia, nausea, vomiting or diarrhea. No abdominal pain or blood in stool. Genitourinary: No burning micturition. No urinary frequency or incontinence. Musculoskeletal: Positive erythema and swelling the bilateral hands Psychiatric: No depression or anxiety. <Kera Nascimento CNP - Last Filed: 06/14/22 18:59> Yes all other systems are reviewed and are negative <Kera Nascimento CNP - Last Filed: 06/14/22 18:59> PMFSH Past Medical History Attestation statement: The following information was validated with the patient. <Kera Doradoe JAMES Nascimento - Last Filed: 06/14/22 18:59> Source: old records reviewed <Kera Doradoe JAMES Nascimento - Last Filed: 06/14/22 18:59> Medical History: Medical History Cellulitis of left arm Cocaine abuse ETOH abuse <ELIUD Obando - Last Filed: 06/14/22 12:03> Social History Social History: Social History Alcohol intake: never Patient Tobacco Use Status: Former Tobacco user Tobacco use type: Cigarette Substance Use Type: Crack/Cocaine Advance Directives: No Advance Directives Information Provided: Yes service: No <ELIUD Obando - Last Filed: 06/14/22 12:03> Physical Exam ED Vital Signs: Vital Signs - 24 hr 06/14/22 12:00 Temperature 97.5 F Pulse Rate 93 Respiratory Rate 20 Blood Pressure 123/72 Pulse Oximetry 95 Oxygen Delivery Method Room Air BMI result Body Mass Index 30.4 <ELIUD Obando - Last Filed: 06/14/22 12:03> Vital Signs - 24 hr 06/14/22 12:00 Temperature 97.5 F Pulse Rate 93 Respiratory Rate 20 Blood Pressure 123/72 Pulse Oximetry 95 Oxygen Delivery Method Room Air BMI result Body Mass Index 30.4 Bottom of his feet have thickened tissue, macerated. Feet recently wet for pro longed time. Warm and well perfused x4. Would like to see someone about detox. <Kera Nascimento CNP - Last Filed: 06/14/22 18:59> Appearance: Alert.?Oriented to person, place and time. No acute distress.?Normal affect. Eyes: Pupils equal, round and reactive to light.? ENT: Pharynx normal.?? Neck: Normal inspection.? Neck supple.?? CVS: Heart sounds normal. Normal heart rate and rhythm. No murmurs, gallops, rubs.? Pulses normal.?? Respiratory: No respiratory distress.? Lung sounds clear to auscultation bilaterally?? Abdomen: Soft and non-tender. Normoactive bowel sounds. Skin: Skin warm and dry.? Normal skin color.? Extremities: Bilateral dorsal hands diffusely erythematous, warm to touch. Full range of motion present to the digits and wrist. 2+ radial pulse bilaterally. scabbed abrasions at nail bed. No evidence of pedal edema, plantar surface of feet with thickened tissue, opened blister/calluses are present. He does state that he has been out in the rain for prolonged periods recently. 2+ DP/PT pulse bilaterally. Neuro: Moves all extremities spontaneously. Sensation intact bilaterally. No focal neuro deficits. Ambulates with normal steady gait. <Kera Nascimento CNP - Last Filed: 06/14/22 18:59> Course Course Course Narrative: RME - 36 yo homeless male, polysubstance abuse (heroin, cocaine) on Suboxone presenting for evaluation of swollen, red, painful extremities feet worse than hands, in the setting of being outside for the last week. Bottom of his feet have thickened tissue, macerated. Feet recently wet for prolonged time. Warm and well perfused x4. Would like to see someone about detox. Placed back to waiting room until room is available. <ELUID Obando - Last Filed: 06/14/22 12:03> Reevaluation(s) Reevaluation #1: Patient was unwilling to speak with care team upon their arrival, reporting that he is too tired and would like to sleep. Care team advised to contact them back once patient is amenable to evaluation. At this time I had an at length discussion with patient, advised that he needs to speak with care team if he is interested detox services. Furthermore, CBC without leukocytosis, mild microcytic anemia, not needing transfusion criteria, platelets normal. No lactic acidosis. BMP is overall unremarkable. Transaminases are elevated AST 346, ALT 264, alkaline phosphatases 250 which is increased from prior. Denies alcohol consumption, denies use of OTC pain medications. Total bilirubin is within normal limits abdominal examination remains benign, review history of alcohol abuse, unlikely to be biliary in nature with bilirubin, will add on hepatitis panel, and obtain right upper quadrant ultrasound for further evaluation. Suspect alcoholic hepatitis versus viral hepatitis at this time. Abdominal examination is benign, no complaints of pain, nausea, vomiting, food intolerance. <Kera Nascimento CNP - Last Filed: 06/14/22 18:59> Time: 15:35 <Kera Nascimento CNP - Last Filed: 06/14/22 18:59> Reevaluation #2: Ultrasound revealing cholelithiasis without evidence of cholecystitis, CBD measuring 1.0 cm. Upon review chart, in April 2022 patient with choledocholithiasis with CBD dilation 1.2cm, had MRCP in subsequent ERCP; sludge/stone fragments were removed with balloon following sphincterectomy, at that time they discussed laparoscopic cholecystectomy with patient, and he opted to have this performed outpatient. However, does not appear as though he ever followed up with surgery. Upon asking the patient why he did not follow-up he becomes very angry and frustrated, stating that he does not want to talk to me. I discussed this case with ED attending Dr. Charles, at this time do not feel that there is indication for inpatient admission. Rather he will require outpatient follow-up with General surgery as he may still require laparoscopic cholecystectomy as previously advised. Provided with contact information for general surgery office. swimming coach or instructor met with patient has a bed at [facility]. He will be placed in physician observation, the reason for observation being he requires additional time for detox services to be coordinated, he is homeless and without access to a phone for [facility] to make contact with him. Patient will have printed prescription for cephalexin and doxycycline to bring to pharmacy of most convenience upon discharge/discharged to detox. Spoke with patient at length in regard to this. <Kera Nascimento CNP - Last Filed: 06/14/22 18:59> Time: 18:35 <Kera Nascimento CNP - Last Filed: 06/14/22 18:59> Medications Administered Discontinued Medications Generic Name Dose Route Start Last Admin Trade Name Freq PRN Reason Stop Dose Admin Cephalexin HCl 500 mg 06/14/22 14:53 06/14/22 15:07 Cephalexin 500 Mg Capsule PO 06/14/22 14:54 500 mg ONCE ONE Administration Doxycycline Monohydrate 100 mg 06/14/22 14:53 06/14/22 15:07 Doxycycline Monohydrate 100 Mg Capsule PO 06/14/22 14:54 100 mg ONCE ONE Administration <ELIUD Obando - Last Filed: 06/14/22 12:03> Medications Administered Discontinued Medications Generic Name Dose Route Start Last Admin Trade Name Freq PRN Reason Stop Dose Admin Cephalexin HCl 500 mg 06/14/22 14:53 06/14/22 15:07 Cephalexin 500 Mg Capsule PO 06/14/22 14:54 500 mg ONCE ONE Administration Doxycycline Monohydrate 100 mg 06/14/22 14:53 06/14/22 15:07 Doxycycline Monohydrate 100 Mg Capsule PO 06/14/22 14:54 100 mg ONCE ONE Administration <Kera Nascimento CNP - Last Filed: 06/14/22 18:59> Medical Decision Making Medical Decision Making [facility] Narrative: History and physical examination concerning for cellulitis to the bilateral hands. Bilateral feet with mild maceration of tissue, without evidence of infection at this time. All extremities are neurovascularly intact distally bilateral upper and lower. No respiratory distress, no hypoxia or tachypnea. Heart sounds are normal, no murmur. Denies any history of heart failure. Patient with history of MRSA. Upon physical examination no evidence of Janeway lesions or Osler's nodes, lower suspicion for endocarditis at this time. Physical examination most consistent with cellulitis to the bilateral dorsal hands, patient to receive cephalexin and doxycycline while in the emergency department. Will obtain CBC, CMP, BNP, blood cultures. Patient will require referral to care team for assistance with detox. <Kera Nascimento CNP - Last Filed: 06/14/22 18:59> Differential Diagnosis Differential Diagnoses: The differential diagnosis associated with the presentation includes (Non freezing cold water immersion injury to feet, callus, cellulitis the bilateral hands, bacteremia, ) <Kera Nascimento CNP - Last Filed: 06/14/22 18:59> Admission/Observation Consideration of admission/observation: Escalation of care including admission/observation considered <Kear Nascimento CNP - Last Filed: 06/14/22 18:59> Considered inpatient admission as noted in course <Kera Nascimento CNP - Last Filed: 06/14/22 18:59> Lab Data [facility] Lab Attestation statement: I reviewed the patient's lab results. <Kera Nascimento CNP - Last Filed: 06/14/22 18:59> Result Diagrams: 06/14/22 13:44 06/14/22 13:44 <ELIUD Obando - Last Filed: 06/14/22 12:03> Labs: Lab Results 06/14/22 06/14/22 06/14/22 Range/Units 13:44 13:44 13:44 WBC 6.3 (4.8-10.8) X10*3/uL RBC 4.41 L (4.60-5.80) X10*6/uL Hgb 10.9 L (14.0-18.0) g/dl Hct 34.9 L (42.0-52.0) % MCV 79.1 L (80.0-98.0) fL MCH 24.7 L (27.0-33.0) pg MCHC 31.2 (31.0-36.0) g/dl RDW 16.9 H (11.0-16.0) % Plt Count 276 (160-400) X10*3/uL MPV 10.9 (9.4-12.4) fL Immature Gran % (Auto) 0.3 (0.0-0.4) % Neut % (Auto) 62.3 (45-73) % Lymph % (Auto) 26.8 (20-40) % [place] % (Auto) 5.4 (2-11) % Eos % (Auto) 4.6 H (0-4) % Baso % (Auto) 0.6 (0-2) % Lymph # (Auto) 1.7 (1.2-4.9) X10*3/uL [place] # (Auto) 0.3 (0.1-1.2) X10*3/uL Eos # (Auto) 0.3 (0.0-0.4) X10*3/uL Baso # (Auto) 0.0 (0.0-0.2) X10*3/uL Abs Immat Gran (auto) 0.02 (0.00-0.03) X10*3/uL Absolute Neuts (auto) 4.0 (2.0-8.3) x10*3/uL Absolute Nucleated RBC 0.000 (0.0-0.012) X10*3/uL Nucleated RBC % (auto) 0.0 (0.0-0.2) /100WBC Sodium 140 (135-145) mmol/L Potassium 3.5 (3.3-5.1) mmol/L Chloride 105 (96-108) mmol/L Carbon Dioxide 25 (22-29) mmol/L Anion Gap 14 (12-20) BUN 12 (9-16) mg/dL Creatinine 0.81 (0.5-1.4) mg/dL Estim Creat Clear Calc 137.8 Estimated GFR > 60 Random Glucose 86 (60-115) mg/dL Lactic Acid (0.5-2.0) mmol/L Calcium 8.4 D (8.4-10.2) mg/dL Total Bilirubin 0.6 (0.0-1.0) mg/dL AST 346 H (5-37) U/L ALT 265 H (0-40) U/L Alkaline Phosphatase 250 H (39-117) U/L B-Natriuretic Peptide 59 (<100) pg/mL Total Protein 7.2 (6.5-8.0) g/dL Albumin 3.9 (3.5-5.0) g/dL 06/14/22 Range/Units 13:44 WBC (4.8-10.8) X10*3/uL RBC (4.60-5.80) X10*6/uL Hgb (14.0-18.0) g/dl Hct (42.0-52.0) % MCV (80.0-98.0) fL MCH (27.0-33.0) pg MCHC (31.0-36.0) g/dl RDW (11.0-16.0) % Plt Count (160-400) X10*3/uL MPV (9.4-12.4) fL Immature Gran % (Auto) (0.0-0.4) % Neut % (Auto) (45-73) % Lymph % (Auto) (20-40) % [place] % (Auto) (2-11) % Eos % (Auto) (0-4) % Baso % (Auto) (0-2) % Lymph # (Auto) (1.2-4.9) X10*3/uL [place] # (Auto) (0.1-1.2) X10*3/uL Eos # (Auto) (0.0-0.4) X10*3/uL Baso # (Auto) (0.0-0.2) X10*3/uL Abs Immat Gran (auto) (0.00-0.03) X10*3/uL Absolute Neuts (auto) (2.0-8.3) x10*3/uL Absolute Nucleated RBC (0.0-0.012) X10*3/uL Nucleated RBC % (auto) (0.0-0.2) /100WBC Sodium (135-145) mmol/L Potassium (3.3-5.1) mmol/L Chloride (96-108) mmol/L Carbon Dioxide (22-29) mmol/L Anion Gap (12-20) BUN (9-16) mg/dL Creatinine (0.5-1.4) mg/dL Estim Creat Clear Calc Estimated GFR Random Glucose (60-115) mg/dL Lactic Acid 0.9 (0.5-2.0) mmol/L Calcium (8.4-10.2) mg/dL Total Bilirubin (0.0-1.0) mg/dL AST (5-37) U/L ALT (0-40) U/L Alkaline Phosphatase (39-117) U/L B-Natriuretic Peptide (<100) pg/mL Total Protein (6.5-8.0) g/dL Albumin (3.5-5.0) g/dL <ELIUD Obando - Last Filed: 06/14/22 12:03> Lab Results 06/14/22 06/14/22 06/14/22 Range/Units 13:44 13:44 13:44 WBC 6.3 (4.8-10.8) X10*3/uL RBC 4.41 L (4.60-5.80) X10*6/uL Hgb 10.9 L (14.0-18.0) g/dl Hct 34.9 L (42.0-52.0) % MCV 79.1 L (80.0-98.0) fL MCH 24.7 L (27.0-33.0) pg MCHC 31.2 (31.0-36.0) g/dl RDW 16.9 H (11.0-16.0) % Plt Count 276 (160-400) X10*3/uL MPV 10.9 (9.4-12.4) fL Immature Gran % (Auto) 0.3 (0.0-0.4) % Neut % (Auto) 62.3 (45-73) % Lymph % (Auto) 26.8 (20-40) % [place] % (Auto) 5.4 (2-11) % Eos % (Auto) 4.6 H (0-4) % Baso % (Auto) 0.6 (0-2) % Lymph # (Auto) 1.7 (1.2-4.9) X10*3/uL [place] # (Auto) 0.3 (0.1-1.2) X10*3/uL Eos # (Auto) 0.3 (0.0-0.4) X10*3/uL Baso # (Auto) 0.0 (0.0-0.2) X10*3/uL Abs Immat Gran (auto) 0.02 (0.00-0.03) X10*3/uL Absolute Neuts (auto) 4.0 (2.0-8.3) x10*3/uL Absolute Nucleated RBC 0.000 (0.0-0.012) X10*3/uL Nucleated RBC % (auto) 0.0 (0.0-0.2) /100WBC Sodium 140 (135-145) mmol/L Potassium 3.5 (3.3-5.1) mmol/L Chloride 105 (96-108) mmol/L Carbon Dioxide 25 (22-29) mmol/L Anion Gap 14 (12-20) BUN 12 (9-16) mg/dL Creatinine 0.81 (0.5-1.4) mg/dL Estim Creat Clear Calc 137.8 Estimated GFR > 60 Random Glucose 86 (60-115) mg/dL Lactic Acid (0.5-2.0) mmol/L Calcium 8.4 D (8.4-10.2) mg/dL Total Bilirubin 0.6 (0.0-1.0) mg/dL AST 346 H (5-37) U/L ALT 265 H (0-40) U/L Alkaline Phosphatase 250 H (39-117) U/L B-Natriuretic Peptide 59 (<100) pg/mL Total Protein 7.2 (6.5-8.0) g/dL Albumin 3.9 (3.5-5.0) g/dL 06/14/22 Range/Units 13:44 WBC (4.8-10.8) X10*3/uL RBC (4.60-5.80) X10*6/uL Hgb (14.0-18.0) g/dl Hct (42.0-52.0) % MCV (80.0-98.0) fL MCH (27.0-33.0) pg MCHC (31.0-36.0) g/dl RDW (11.0-16.0) % Plt Count (160-400) X10*3/uL MPV (9.4-12.4) fL Immature Gran % (Auto) (0.0-0.4) % Neut % (Auto) (45-73) % Lymph % (Auto) (20-40) % [place] % (Auto) (2-11) % Eos % (Auto) (0-4) % Baso % (Auto) (0-2) % Lymph # (Auto) (1.2-4.9) X10*3/uL [place] # (Auto) (0.1-1.2) X10*3/uL Eos # (Auto) (0.0-0.4) X10*3/uL Baso # (Auto) (0.0-0.2) X10*3/uL Abs Immat Gran (auto) (0.00-0.03) X10*3/uL Absolute Neuts (auto) (2.0-8.3) x10*3/uL Absolute Nucleated RBC (0.0-0.012) X10*3/uL Nucleated RBC % (auto) (0.0-0.2) /100WBC Sodium (135-145) mmol/L Potassium (3.3-5.1) mmol/L Chloride (96-108) mmol/L Carbon Dioxide (22-29) mmol/L Anion Gap (12-20) BUN (9-16) mg/dL Creatinine (0.5-1.4) mg/dL Estim Creat Clear Calc Estimated GFR Random Glucose (60-115) mg/dL Lactic Acid 0.9 (0.5-2.0) mmol/L Calcium (8.4-10.2) mg/dL Total Bilirubin (0.0-1.0) mg/dL AST (5-37) U/L ALT (0-40) U/L Alkaline Phosphatase (39-117) U/L B-Natriuretic Peptide (<100) pg/mL Total Protein (6.5-8.0) g/dL Albumin (3.5-5.0) g/dL <Kera Nascimento CNP - Last Filed: 06/14/22 18:59> Radiology Impression Discussion of test interpretation with radiology: I have reviewed the radiologist's reading. <Kera Nascimento CNP - Last Filed: 06/14/22 18:59> Radiologist Impression: US/US abdomen limited IMPRESSION: Cholelithiasis without evidence for acute cholecystitis. No significant interval change. Common bile duct dilatation has decreased. <Kera Camacho CNP - Last Filed: 06/14/22 18:59> Prescription Management I considered prescription management with: Antibiotic <Kera Nascimento CNP - Last Filed: 06/14/22 18:59> Critical Care Time Critical Care Time Critical Care Time: Yes <Kera Nascimento CNP - Last Filed: 06/14/22 18:59> Total Critical Care Time: 35 <Kera Nascimento CNP - Last Filed: 06/14/22 18:59> Attestation: I personally attest to this critical care time spent taking care of the patient exclusive of all other billable procedures was approximately 35 minutes including initial evaluation of patient, ordering tests, x-ray interpretation, EKG interpretation, medical consultation, documentation, re-evaluation. <Kera Nascimento CNP - Last Filed: 06/14/22 18:59> Discharge Plan Discharge Clinical Impression: Cellulitis of hand, Cholelithiasis <ELIUD Obando - Last Filed: 06/14/22 12:03> Patient Disposition: Still a Patient <ELIUD Obando - Last Filed: 06/14/22 12:03> Instructions: Gallstones (ED), Cellulitis (ED) <ELIUD Obando - Last Filed: 06/14/22 12:03> Additional Instructions: You have been given a prescription for Keflex and doxycycline to treat the cellulitis/infection to your hands. Please complete this entire course of antibiotics. Additionally, it is recommended that you follow-up with the general surgery office. In April 2022 when you were evaluated in the [facility] it was recommended that you follow up outpatient to schedule gallbladder removal surgery. Ultrasound we did today reveals gallstones still to be present, and your blood work regarding your liver and is elevated. If you develop abdominal pain, nausea, vomiting, fevers, chills, inability to tolerate eating or drinking you should return back for re-evaluation. <ELIUD Obando - Last Filed: 06/14/22 12:03> Prescriptions: New doxycycline hyclate 100 mg capsule 100 mg PO BID Qty: 14 0RF cephalexin 500 mg capsule 500 mg PO QID 7 Days Qty: 28 0RF No Action cephalexin 500 mg capsule 500 mg PO BID Qty: 14 0RF doxycycline hyclate 100 mg capsule 100 mg PO BID Qty: 14 0RF trazodone 50 mg tablet 0.25 tab PO Q4H PRN (Reason: anxiety) melatonin 3 mg tablet 3 tab PO BEDTIME PRN (Reason: Insomnia) gabapentin 800 mg tablet 1 tab PO TID calcium carbonate [Antacid (calcium carbonate)] 200 mg calcium (500 mg) tablet,chewable 2 tab PO QID PRN (Reason: Acid Reflux) omeprazole 20 mg capsule,delayed release(DR/EC) 1 cap PO DAILY@0630 gabapentin 100 mg capsule 1 cap PO Q4H PRN (Reason: anxiety) nicotine (polacrilex) 2 mg lozenge 1 tete PO Q2H PRN (Reason: Smoking Cessation) buprenorphine-naloxone [Suboxone] 8-2 mg film 1 strip sublingual DAILY <ELIUD Obando - Last Filed: 06/14/22 12:03>
[2022-06-14 13:50] LABS: MANUAL DIFF FLAG NO
[2022-06-14 13:55] LABS: Basophils Percent Auto 0.6 % (0-2); Eosinophils Absolute Auto 0.3 X10*3/uL (0.0-0.4); Eosinophils Percent Auto 4.6 % (0-4); Hematocrit 34.9 % (42.0-52.0); Hemoglobin 10.9 g/dl (14.0-18.0); Imm Gran Abs Auto 0.02 X10*3/uL (0.00-0.03); Imm Gran Pct Auto 0.3 % (0.0-0.4); Lymphocytes Absolute Auto 1.7 X10*3/uL (1.2-4.9); Lymphocytes Percent Auto 26.8 % (20-40); Mean Corpuscular HGB Conc 31.2 g/dl (31.0-36.0); Mean Corpuscular Hemoglobin 24.7 pg (27.0-33.0); Mean Corpuscular Volume 79.1 fL (80.0-98.0); Mean Platelet Volume 10.9 fL (9.4-12.4); Monocytes Absolute Auto 0.3 X10*3/uL (0.1-1.2); Monocytes Percent Auto 5.4 % (2-11); Neutrophils Percent Auto 62.3 % (45-73); Platelet Count 276 X10*3/uL (160-400); Red Blood Count 4.41 X10*6/uL (4.60-5.80); Red Cell Distribution Width 16.9 % (11.0-16.0); White Blood Count 6.3 X10*3/uL (4.8-10.8)
[2022-06-14 14:10] LABS: Lactic Acid 0.9 mmol/L (0.5-2.0)
[2022-06-14 14:18] LABS: Alanine Aminotransferase 265 U/L (0-40); Albumin Level 3.9 g/dL (3.5-5.0); Alkaline Phosphatase 250 U/L (39-117); Anion Gap 14 (12-20); Aspartate Amino Transferase 346 U/L (5-37); Bilirubin Total 0.6 mg/dL (0.0-1.0); Blood Urea Nitrogen 12 mg/dL (9-16); Calcium 8.4 mg/dL (8.4-10.2); Carbon Dioxide 25 mmol/L (22-29); Chloride 105 mmol/L (96-108); Creatinine Clr Calc Pharmacy 137.8; Estimated Glomerular Filt Rate > 60; Glucose Random 86 mg/dL (60-115); Potassium 3.5 mmol/L (3.3-5.1); Sodium 140 mmol/L (135-145); Total Protein 7.2 g/dL (6.5-8.0)
[2022-06-14 14:20] LABS: B Type Natriuretic Peptide 59 pg/mL (<100)
[2022-06-14] MEDS: cephALEXin 500 MG CAPSULE PO (15:07)
[2022-06-14] MEDS: Doxycycline Monohydrate 100 MG CAPSULE PO (15:07)
--- NOTE | 2022-06-14 15:46 | MHC.RECOVRN ---
This filing writer attempted to meet w/ patient, patient was sleeping in bed, covered by blanket. T/W inquired about detox request x's 3, patient initially unresponsive, wifty, word salad. 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 Pt reports no SI, HI, AVH, VH at this time. Patient unable to answer any further questions at this time. Patient falling asleep during this writers questions. Wildlife Manager to f/u.
--- NOTE | 2022-06-14 16:41 | PC.NURSE ---
pt medicated according to orders. pt difficult to rouse, jumping from topic to topic in conversation. explained abx therapy is for cellulitis of hands, pt verbalized understanding. pt oob to BR x1 stated he was unable to provide a urine sample. WCTM pt awaiting consult with mechanic recovery as per previous note by care team, pt is interested in detox
--- NOTE | 2022-06-14 17:12 | MHC.RECOVSUP ---
Addendum entered by Vicki Botello, [facility] 06/14/22 19:30: [facility] contacted CARE team - unable to accommodate an admission tonight, encouraged to follow up in the morning. Original Note: ? Reason for consult Recovery Support o Current location: [facility] o Identified substance use concern: NA - Seeking ATS (detox) - Support ? Intervention: o ATS bed search started/completed/in process o Community resources provided o Harm reduction discussion ? Plan: o Follow up tomorrow ? Additional information: Patient seeking ATS but cant do an in take at the moment.. I called [facility] and they stated that no beds at the moment. I called [facility] and there was a possibility but patient cant do intake but [facility] was able to leave info.. They stated that if patient makes it to [facility] at 8 AM they would have a bed.
[2022-06-14 20:21] VITALS: BP 120/66; PULSE 67; RESP 18; O2SAT 97
--- NOTE | 2022-06-14 20:45 | PC.NURSE ---
Addendum entered by Ana Ramesh 06/14/22 21:14: States 3/10 bilateral hand pain that worsen with movement. Original Note: This service writer assumed care of this PT at this time. PT sleeping awakens with verbal stimuli, no apparent distress. Calm and cooperative. PO fluids and pudding given per request. Warm blanket provided. Denies SI/HI.
[2022-06-15 03:20] VITALS: BP 134/66; PULSE 80; RESP 17; TEMP 37.3; O2SAT 94
--- NOTE | 2022-06-15 03:38 | PC.NURSE ---
PT sleeping, RR 17. VSS. No apparent distress, will continue to observe.
[2022-06-15 07:41] VITALS: BP 132/80; PULSE 77; RESP 18; TEMP 36.8; O2SAT 95
[2022-06-15 08:01] LABS: HBS Num1 77.55 mIU/mL (0-7.99); HBc Num1 0.14 S/CO (0.00-0.79); HBsAGNum1 0.47 S/CO (0.00-0.99); Hepatitis A Antibody IgM 0.13 Index (0-0.79); Hepatitis B Core Antibody Nonreactive (Nonreactive); Hepatitis B Surface Antigen Negative (Negative); ~HepC Num1 12.21 S/CO (0.00-0.79); ~Hepatitis A Antibody IgM Nonreactive (Nonreactive); ~Hepatitis B Surface Antibody REACTIVE (Nonreactive); ~Hepatitis C Antibody Reactive (Nonreactive)
--- NOTE | 2022-06-15 09:00 | MHC.RECOVRN ---
Met with pt in [facility] to follow up regarding ATS. Pt laying in bed, awake, alert, engaged in conversation, irritable, requesting Suboxone and ATS. Pt reports being prescribed Suboxone and not having it x 4 days. Pt reports last heroin use 3 days ago. Pt educated regarding precipitated withdrawal, understands risks associated with taking Suboxone too soon and continues to request. Spoke with provider, pt to be ordered 4 mg film. T/w will follow up with [facility] regarding admission.
[2022-06-15] MEDS: Buprenorphine/Naloxone 4/1 mg FILM 1 FILM SUBLINGUAL (09:26)
--- NOTE | 2022-06-15 10:30 | MHC.RECOVRN ---
Pt accepted to [facility]. Will be transported via [employer].
== END 2022-06-15 10:12 | disposition still patient (30) ==
PROVIDERS: Nurse Practitioner Family; Emergency Provider Emergency Medicine; PCP Internal Medicine
DX: L03.114 Cellulitis of left upper limb (principal); L03.113 Cellulitis of right upper limb; K80.20 Calculus of gallbladder without cholecystitis without obstruction; T69.022A Immersion foot, left foot, initial encounter; T69.021A Immersion foot, right foot, initial encounter; X31.XXXA Exposure to excessive natural cold, initial encounter; D64.9 Anemia, unspecified; R60.0 Localized edema; F11.20 Opioid dependence, uncomplicated; F14.10 Cocaine abuse, uncomplicated; F10.10 Alcohol abuse, uncomplicated; Y90.9 Presence of alcohol in blood, level not specified; Z87.891 Personal history of nicotine dependence; Z86.14 Personal history of Methicillin resistant Staphylococcus aureus infection
CPT/HCPCS: 36415; 76705; 80053; 83605; 83880; 85025; 86704; 86706; 86709; 86803; 87040; 87147; 87205; 87340; 99284